=== PATIENT | male | born 1945 | race American Indian/Alaskan Native ===

== ENCOUNTER 2018-03-23 17:09 | Inpatient (IN) | payer MEDICARE ==
[2018-03-23] MEDS ORDERED: Piperacillin/Tazobact 3.375 gm 100 ML IVPB STA (17:56)
--- NOTE | 2018-03-23 18:05 | C.PDOC ---
History Of Present Illness 72 y/o male presents to the ER complaining of wound to right foot. Patient states that he was seen by his PMD, in his office yesterday. referred him to the ER for admission. Patient notes that he has draining in his right foot and a left BKA. Denies having fever, chills, and other complaint at this time. Time Seen by Provider: 03/23/18 17:23 Chief Complaint (Nursing): Lower Extremity Problem/Injury History Per: Patient History/Exam Limitations: no limitations Onset/Duration Of Symptoms: Days Current Symptoms Are (Timing): Still Present Severity: Moderate Past Medical History Reviewed: Historical Data, Nursing Documentation, Vital Signs Vital Signs: Last Vital Signs Temp 97.8 F 03/23/18 17:38 Pulse 76 03/23/18 17:38 Resp 18 03/23/18 17:38 BP 140/71 03/23/18 17:38 Pulse Ox 95 03/23/18 18:30 - Medical History PMH: CHF, HTN, Hypercholesterolemia Denies: Chronic Kidney Disease Other Surgeries: Hx of surgeries Family History: States: No Known Family Hx - Social History Hx Alcohol Use: No Hx Substance Use: No - Immunization History Hx Tetanus Toxoid Vaccination: No Hx Influenza Vaccination: No Hx Pneumococcal Vaccination: No Review Of Systems Except As Marked, All Systems Reviewed And Found Negative. Constitutional: Negative for: Fever, Chills Skin: Positive for: Other (open wound to right foot) Physical Exam - Physical Exam Appears: Non-toxic, No Acute Distress Skin: Normal Color, Warm, Dry Head: Atraumatic, Normacephalic Eye(s): bilateral: Normal Inspection Nose: Normal Oral Mucosa: Moist Neck: Supple Chest: Symmetrical Cardiovascular: Rhythm Regular Respiratory: Normal Breath Sounds, No Rales, No Rhonchi, No Wheezing Gastrointestinal/Abdominal: Normal Exam, Soft, No Tenderness, No Guarding, No Rebound Extremity: Normal ROM, Other (tenderness and drainage to right 3rd, 4th, and 5th digits , ulceration to right heel, left BKA) Neurological/Psych: Oriented x3, Normal Speech ED Course And Treatment O2 Sat by Pulse Oximetry: 95 (RA) Pulse Ox Interpretation: Normal - Other Rad X-Ray- Right Foot X-Ray: Viewed By Me, Read By Radiologist Interpretation: Date of service: 03/23/2018. PROCEDURE: Right Foot Radiographs. HISTORY: foot infection. COMPARISON: None. FINDINGS: BONES: Prior resection of the 1st digit. JOINTS: Multiple hammertoe deformities 2nd through 5th digits. SOFT TISSUES: Plantar soft tissue swelling distally. Soft tissue swelling in the vicinity of the Achilles tendon insertion. OTHER FINDINGS: None. IMPRESSION: Soft tissue swelling without acute articular or osseous abnormality. CXR X-Ray: Viewed By Me, Read By Radiologist Interpretation: Date of service: 03/23/2018. PROCEDURE: CHEST RADIOGRAPH, 1 VIEW. HISTORY: SOB. COMPARISON: Chest radiograph dated 11/29/2012. FINDINGS : LUNGS: Stable chronic prominence of the bilateral interstitial markings. Bibasilar atelectasis. PLEURA: Small bilateral pleural effusions. No appreciable pneumothorax. CARDIOVASCULAR: Atherosclerotic aortic calcifications. Cardiomediastinal silhouette stably probable. OSSEOUS STRUCTURES: Bilateral humeral hardware. Unchanged. VISUALIZED UPPER ABDOMEN: Normal. OTHER FINDINGS: Left subclavian access chest port, unchanged. Left axillary surgical clips. IMPRESSION: Small bilateral pleural effusions. Medical Decision Making Medical Decision Making: Assessment: Foot Cellulitis Plan: --Labs --EKG --CXR --Vancomycin IV Updates: Case discussed with . Patient will be admitted for foot cellultis. ,Dr. Zelaya, and Dr. Woods will be on consult. Podiatry resident notified, will come to evaluate patient. Disposition Discussed With Dr.: Edison Yadav Doctor Will See Patient In The: Hospital Counseled Patient/Family Regarding: Studies Performed, Diagnosis - Disposition Disposition: HOSPITALIZED Disposition Time: 18:05 Condition: FAIR Forms: [employer] (Marshallese) - Clinical Impression Clinical Impression: Cellulitis of foot - Scribe Statement The provider has reviewed the documentation as recorded by [facility] Provider Attestation: All [facility] were at my direction and personally dictated by me. I have reviewed the chart and agree that the record accurately reflects my personal performance of the history, physical exam, medical decision making, and the department course for this patient. I have also personally directed, reviewed, and agree with the discharge instructions and disposition.
--- NOTE | 2018-03-23 18:20 | RAD ---
Date of service: 03/23/2018 PROCEDURE: Right Foot Radiographs. HISTORY: foot infection COMPARISON: None. FINDINGS: BONES: Prior resection of the 1st digit. JOINTS: Multiple hammertoe deformities 2nd through 5th digits. SOFT TISSUES: Plantar soft tissue swelling distally. Soft tissue swelling in the vicinity of the Achilles tendon insertion. OTHER FINDINGS: None. IMPRESSION: Soft tissue swelling without acute articular or osseous abnormality.
--- NOTE | 2018-03-23 18:23 | RAD ---
Date of service: 03/23/2018 PROCEDURE: CHEST RADIOGRAPH, 1 VIEW HISTORY: SOB COMPARISON: Chest radiograph dated 11/29/2012. FINDINGS: LUNGS: Stable chronic prominence of the bilateral interstitial markings. Bibasilar atelectasis. PLEURA: Small bilateral pleural effusions. No appreciable pneumothorax. CARDIOVASCULAR: Atherosclerotic aortic calcifications. Cardiomediastinal silhouette stably probable. OSSEOUS STRUCTURES: Bilateral humeral hardware. Unchanged. VISUALIZED UPPER ABDOMEN: Normal. OTHER FINDINGS: Left subclavian access chest port, unchanged. Left axillary surgical clips. IMPRESSION: Small bilateral pleural effusions.
[2018-03-23 19:27] LABS: ALB/GLOB RATIO 1.1 (1.0-2.1); ALBUMIN 3.8 g/dL (3.5-5.0); ALT/SGPT 23 U/L (21-72); AST/SGOT 48 U/L (17-59); BLOOD UREA NITROGEN 18 mg/dL (9-20); CALCIUM 8.9 mg/dl (8.6-10.4); GFR AFRICAN-AMERICAN > 60; GFR NON-AFRICAN AMERICAN > 60
[2018-03-23] MEDS ORDERED: Vancomycin 1 gm/NS 200 ml 1 GM/200 ML BAG IVPB STA (20:01)
[2018-03-23 20:10] LABS: HEMOGLOBIN 12.5 g/dL (12.0-18.0); MEAN CORPUSCULAR HGB CONC 31.9 g/dL (33.0-37.0); NEUT # 6.3 K/uL (1.8-7.0); NRBC % 0.2 % (0.0-2.0)
[2018-03-23 20:15] LABS: PROTHROMBIN TIME 11.2 SECONDS (9.7-12.2)
[2018-03-23] MEDS: Piperacill/Tazo 2.25gm in Dex 2.25 GM/50 ML BAG IVPB SCH (20:29)
[2018-03-23 20:30] LABS: BASO # 0.1 K/uL (0.0-0.2); BASO % 0.6 % (0.0-2.0); EOS # 0.3 K/uL (0.0-0.7); EOS % 3.5 % (0.0-4.0); LYMPH # 1.9 K/uL (1.0-4.3); LYMPH % 19.8 % (20.0-40.0); MEAN CELL VOLUME 82.4 fL (80.0-94.0); MEAN CORPUSCULAR HEMOGLOBIN 26.3 pg (27.0-31.0); MEAN PLATELET VOLUME 7.4 fL (7.2-11.7); MONO # 1.1 K/uL (0.0-0.8); MONO % 11.2 % (0.0-10.0); NEUT % 64.9 % (50.0-75.0); RBC 4.73 Mil/uL (4.40-5.90); RED CELL DISTRIBUTION WIDTH 15.6 % (11.5-14.5); WHITE BLOOD COUNT 9.7 K/uL (4.8-10.8)
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
[2018-03-23] MEDS: HYDROmorphone 1 mg/ml ISec IVP PRN (23:44)
[2018-03-24] MEDS: Piperacill/Tazo 2.25gm in Dex 2.25 GM/50 ML BAG IVPB SCH ×4 (00:52→19:37)
[2018-03-24] MEDS: HYDROmorphone 1 mg/ml ISec IVP PRN ×6 (03:58→23:47)
--- NOTE | 2018-03-24 04:51 | HP ---
HISTORY OF PRESENT ILLNESS: I saw Mr. Cole on Thursday, yesterday on a house call, and I looked at his right foot. I tried to get him to come to the hospital right away. He refused to go at that time. He ended up coming this evening Thursday, the day after. His right foot is very swollen, had a heel ulcer. His three toes, three, four and five are bloody with ulcers. He has got first foot pitting edema of the right leg. The left leg has been giving with this for at least a month less now at the house with may be a +2 edema and the skin was intact. He also has very poor physical condition, and he cannot now stand without maximum assists with his or with a walker. Sometimes, he does use a wheelchair and just pivot. He has a history of left BKA from peripheral vascular disease. PAST MEDICAL HISTORY: CHF, hypertension, high cholesterol. No kidney issues. PAST SURGICAL HISTORY: He has had surgeries of his left leg BKA bilateral shoulder weakness. He cannot have any motion of the shoulders, almost frozen. FAMILY HISTORY: No known family history. SOCIAL HISTORY: No alcohol. No drugs. No smoking. ALLERGIES: HE HAS NO KNOWN DRUG ALLERGIES. MEDICATIONS: He cannot bring list of medications with him. He will bring them tomorrow. REVIEW OF SYSTEMS: No acute vision changes or hearing changes. No sore throat. No neck pain. No chest pain or palpitations. No shortness of breath or cough. No abdominal pain, nausea, vomiting, constipation or diarrhea. Right foot is in pain, pretty severe on an 04/23. He has got a skin ulcers of the heel in the right foot and toes 3, 4 and 5 are bloody wounded and opened. Also, there is much swelling to the right leg. Left leg is BKA. Skin is intact there. PHYSICAL EXAMINATION: VITAL SIGNS: Has 97.8 temperature, 76 pulse, 18 respiratory rate, 140/71 blood pressure, and 95% on O2 saturation on room air. GENERAL: He is in no acute distress. Little bit of pain in the right foot. SKIN: The skin in the right foot, there is a 3 x 3 cm round ulcer almost to the bone stage III at least with blood also with toes 3, 4, and 5. Also, there is very swollen of the right foot and leg up to the knee. HEENT: Head is atraumatic, normocephalic. Extraocular muscles are intact. Throat is moist. NECK: Supple. HEART: Regular rate. Normal S1 and S2. LUNGS: Decreased breath sounds bilaterally, but clear to auscultation. No wheezes, rhonchi or rales. ABDOMEN: Soft, nontender and positive bowel sounds. No guarding or rebound. No CVA tenderness. EXTREMITIES: He has a left BKA. There is a right heel ulcer. There are ulcers to 3, 4 and 5 digits of the right foot. NEUROLOGIC: Alert and oriented x3. Speech is normal. LABORATORY DATA: He had an x-ray of the right foot. He has soft tissue swelling without articular osseous abnormality. Chest x-ray: Small bilateral pleural effusions. Labs are not back yet. IMPRESSION: Severe ulcers of the right foot, edema and cellulitis, rule out osteomyelitis. PLAN: We will get Zosyn IV. Got a shot of vancomycin already. I will have a consult with Infectious Disease, Surgery, and Podiatry. he is on Lasix 40 mg IV, morphine for pain, IV Zosyn. We will check his labs tomorrow and some circulation studies, and I need an MRI of the right foot to rule out osteomyelitis. Edison Yadav DO MTDKarla
[2018-03-24 07:23] LABS: MEAN CELL VOLUME 82.4 fL (80.0-94.0); MEAN CORPUSCULAR HEMOGLOBIN 27.4 pg (27.0-31.0); MEAN CORPUSCULAR HGB CONC 33.2 g/dL (33.0-37.0); MEAN PLATELET VOLUME 7.3 fL (7.2-11.7); RBC 4.39 Mil/uL (4.40-5.90); RED CELL DISTRIBUTION WIDTH 15.9 % (11.5-14.5)
[2018-03-24 07:38] LABS: ALB/GLOB RATIO 1.1 (1.0-2.1); ALBUMIN 3.6 g/dL (3.5-5.0); ALT/SGPT 22 U/L (21-72); AST/SGOT 50 U/L (17-59); BLOOD UREA NITROGEN 17 mg/dL (9-20); CALCIUM 8.7 mg/dl (8.6-10.4); GFR AFRICAN-AMERICAN > 60; GFR NON-AFRICAN AMERICAN > 60
[2018-03-24] MEDS: Enoxaparin 40 mg Syringe SC SCH (09:14)
--- NOTE | 2018-03-24 12:14 | PN ---
DATE: 03/24/2018 SUBJECTIVE: I saw Severiano in bed. He did not sleep well last night and had lot of pain to the right leg. Morphine did not work. Dilaudid helped a little bit, but not much. Also he was not sleeping well. The diuresis with the Lasix made a big difference to the left leg, but less swollen, but there is still oozing from the heel and the toes. PHYSICAL EXAMINATION: VITAL SIGNS: He has a 97.4 temp, 109 pulse, 136/82 blood pressure, 20 respiratory rate, 95% O2 sat on room air. HEENT: Head is atraumatic and normocephalic. HEART: Regular rate. LUNGS: Decreased breath sounds, but clear. ABDOMEN: Soft. EXTREMITIES: The right leg is bandaged. The left leg has got a BKA. He has got a bad heel ulcer, large with oozing almost the bone and toes 3, 4, and 5 ulcers are bloody, and edema is down to like a 3+ and 4+ when he came in. LABORATORY DATA: Labs were 141 sodium, potassium 4.2, BUN 18, and creatinine 0.6. GFR is greater than 60, sugar is 94, calcium is 8.9, total bili is 0.5, AST is 48, ALT is 23, alk phos 79, total protein 7.4, and INR is 1. White count is 9.7, hemoglobin 12.5, hematocrit 39, and platelets 169. ASSESSMENT: Severe right heel ulcer, toes 3, 4 and 5 ulcers, and peripheral vascular disease. PLAN: There will be consults with Vascular and Infectious Disease. I am also calling Cardiology for clearance for possible surgery. I will increase his pain medications to Dilaudid two every 3 and fentanyl patchy 25 and Ambien at nighttime. We will check his labs tomorrow. Edison Yadav DO MTDD
--- NOTE | 2018-03-24 12:24 | CP.PCM.PN ---
Subjective - Date & Time of Evaluation Date of Evaluation: 03/24/18 Time of Evaluation: 12:20 - Subjective Subjective: Podiatry Progress note: Dr. Mosqueda 72 year old male was seen and evaluated at bedside for R foot and leg chronic ischemic wounds. Patient is AAOx3 and appears well. Denies of any acute overnight events. Denies of any pain today unless someone touches the wounds. Denies of any other pedal complains now. Denies F/N/V/C/SOB/CP. Objective - Vital Signs/Intake and Output Vital Signs (last 24 hours): Temp Pulse Resp BP Pulse Ox 98.7 F 91 H 20 140/72 96 03/24/18 08:00 03/24/18 08:00 03/24/18 08:00 03/24/18 09:24 03/24/18 08:00 - Medications Medications: Current Medications Enoxaparin Sodium (Lovenox) 40 mg SC DAILY [facility] Last Admin: 03/24/18 09:14 Dose: Not Given Fentanyl (Duragesic) 1 patch TD Q72H JESSY Last Admin: 03/24/18 07:38 Dose: 1 patch Furosemide (Lasix) 40 mg IVP DAILY [facility] Last Admin: 03/24/18 09:24 Dose: 40 mg Hydromorphone HCl (Dilaudid) 2 mg IVP Q3H PRN PRN Reason: Pain, moderate (4-7) Last Admin: 03/24/18 10:48 Dose: 2 mg Piperacillin Sod/Tazobactam Sod (Zosyn 2.25 Gm Iv Premix) 2.25 gm in 50 mls @ 100 mls/hr IVPB Q6H JESSY PRN Reason: Protocol Last Admin: 03/24/18 06:05 Dose: 100 mls/hr Pneumococcal Polyvalent Vaccine (Pneumovax 23 Vaccine) 0.5 ml IM .ONCE ONE Stop: 03/26/18 10:01 Zolpidem Tartrate (Ambien) 5 mg PO HS PRN PRN Reason: Insomnia - Labs Labs: 03/24/18 07:03 03/24/18 07:03 PT 11.2 SECONDS (9.7-12.2) 03/23/18 19:52 INR 1.0 03/23/18 19:52 APTT 23 SECONDS (21-34) 03/23/18 19:52 - Constitutional Appears: Well, Non-toxic, No Acute Distress - Extremities Exam Additional comments: Right lower extremity focused exam: Vascular: DP/PT pulses are non palpable, CFT >5 secs x 3, Temperature gradient cool to cool from proximal to distal, moderate non-pitting edema noted to the anterior leg Derm: Gangrenous changes noted distal to the knee, plaque noted on the dorsal aspect of the leg, two open lesions noted: 1) Superficial Ulcer noted to the proximal aspect of the heel measuring approximately 5 cm x 2 cm x .1 cm, no malodor, 100% granular base, no active drainage, no tunneling or tracking noted, no probe to bone 2) Ulcer noted on digits 3, 4 and 5 extending proximally on the dorsal aspect. No malodor noted, macerated fibrotic and granular base, minimal serous drainage , no tunneling or tracking, no probe to bone. Ortho: Pain on palpation to the wounds, foot and ankle ROM limited due to guarding. Neuro: Protective sensation intact via ipswich 12/16 - Neurological Exam Neurological Exam: Alert, Awake, Oriented x3 - Psychiatric Exam Psychiatric exam: Normal Affect, Normal Mood Assessment and Plan - Assessment and Plan (Free Text) Assessment: 72 year old male evaluated for gangrenous changes to the right foot and leg as well as ischemic ulcers on the 2nd,3rd, and 4th digits and heel. Plan: Patient seen ad evaluated Discussed patient in details with Dr. Mosqueda Chart, labs, and vitals reviewed; Afebrile Wbc 8.0 Wound cx R foot: pending foot X-ray: no osseous changes consistent with OM noted. Dressing applied using Telfa, DSD Vascular consult in place General surgery consult in place Podiatry will continue to follow patient while in-house
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
[2018-03-24] MEDS: Vitamins A & D Oint UD Foilpak TOP PRN (14:03)
[2018-03-24] MEDS ORDERED: Propofol 10 mg/ml Inj (20 ML) ONE (16:41)
[2018-03-24] MEDS ORDERED: Lidocaine 1% 20 MG/2 ML PF AMP ONE (16:51)
[2018-03-24] MEDS ORDERED: ceFAZolin IV 1 gm in Dextrose 0 GM/0 ML BAG IVPB ONE (16:51)
[2018-03-24] MEDS ORDERED: Iohexol 240 (50 ml) ONE (16:52)
[2018-03-24] MEDS ORDERED: HEPARIN-NS 5,000 UNITS/500 ML 5,000 UNIT/500 ML BAG IV ONE (16:52)
[2018-03-24] MEDS ORDERED: Midazolam 2 MG/2 ML VIAL ONE (16:54)
[2018-03-24] MEDS ORDERED: Lidocaine Hydrochloride 10 ML INJ ONE ×2 (17:10→17:12)
[2018-03-24] MEDS ORDERED: HYDROmorphone 0.5 mg/0.5 ml ISec IVP PRN (17:51)
[2018-03-24] MEDS ORDERED: Vitamins A & D Oint UD Foilpak TOP SCH (18:00)
[2018-03-25] MEDS: Piperacill/Tazo 2.25gm in Dex 2.25 GM/50 ML BAG IVPB SCH ×4 (01:58→19:57)
[2018-03-25] MEDS: HYDROmorphone 1 mg/ml ISec IVP PRN ×6 (03:14→22:24)
--- NOTE | 2018-03-25 04:53 | OP ---
PROCEDURE DATE: 03/24/2018 PREOPERATIVE DIAGNOSIS: Gangrene in the right foot. POSTOPERATIVE DIAGNOSIS: Gangrene in the right foot. PROCEDURE PERFORMED: 1. Removal of previous malfunctioning Port-A-Cath. 2. Insertion of new Port-A-Cath. 3. Right third, fourth, and fifth toe transmetatarsal amputation. SURGEON: Silvio Woods MD ANESTHESIA: General. BLOOD LOSS: 30 mL. POSTOPERATIVE CONDITION: Stable. INDICATIONS FOR SURGERY: This is a 72-year-old male well-known to me. He is 10 years status post left BKA for peripheral vascular disease, presents with severe right diabetic foot infection with pus draining from the base of his toes, and extensive gangrene. He also has an occluded Port-A-Cath and is taken to the operating room for change of his Port-A-Cath as well as a drainage of the abscess in his foot and a palliative amputation in preparation for an angiogram and possible below-knee amputation. DESCRIPTION OF PROCEDURE: The patient taken to the operating room. IV sedation was administered. The left chest wall was prepped and draped. Local anesthesia was infiltrated on the left chest wall. An incision was made near the previous Port-A-Cath. It was dissected free and removed via tissue flaps been raised. Next, an wire attempted to be passed to the previous catheter was occluded but not permit passage of the catheter. For this reason, the subclavian vein was cannulated with a " " and a guidewire was inserted into the vena cava. The previous catheter had been completely removed. The catheter was inserted over an introducer, withdrawn to the level of vena cava, placement was confirmed fluoroscopically. The wound was irrigated with saline. Tissue flaps were placed and a tissue flap closure was performed with multiple layers of Monocryl. The catheter was then cannulated. General anesthesia was administered, and the right foot was prepped and draped. A generous elliptical incision was made surrounding gangrenous areas of the foot and pus was drained and cultured. The transmetatarsal bones were transected using a bone cutter and the wound was left open. Bleeding was controlled using the Bovie. It was packed open with wet saline gauze and a pressure dressing. The patient tolerated the procedure well. Returned to recovery room in stable condition. Silvio Woods MD [facility] # [id number]
[2018-03-25 07:27] LABS: HEMOGLOBIN 12.3 g/dL (12.0-18.0); MEAN CELL VOLUME 82.4 fL (80.0-94.0); MEAN CORPUSCULAR HEMOGLOBIN 27.3 pg (27.0-31.0); MEAN CORPUSCULAR HGB CONC 33.2 g/dL (33.0-37.0); MEAN PLATELET VOLUME 7.4 fL (7.2-11.7); RBC 4.51 Mil/uL (4.40-5.90); RED CELL DISTRIBUTION WIDTH 15.3 % (11.5-14.5)
[2018-03-25 07:29] LABS: ALB/GLOB RATIO 1.1 (1.0-2.1); ALBUMIN 3.9 g/dL (3.5-5.0); ALT/SGPT 19 U/L (21-72); AST/SGOT 49 U/L (17-59); BLOOD UREA NITROGEN 14 mg/dL (9-20); CALCIUM 9.1 mg/dl (8.6-10.4); GFR AFRICAN-AMERICAN > 60; GFR NON-AFRICAN AMERICAN > 60
[2018-03-25] MEDS: Enoxaparin 40 mg Syringe SC SCH (09:17)
--- NOTE | 2018-03-25 10:02 | RAD ---
PROCEDURE: HISTORY: As above COMPARISON: None TECHNIQUE: Total fluoroscopic time utilized during the procedure: 42.1 seconds ; 6.07 mGy FINDINGS: Submitted images from the current procedure: 3 Please refer to the physician's notes performing the procedure. IMPRESSION: Less than 1 hour fluoroscopic time utilized during performance of the procedure
--- NOTE | 2018-03-25 12:17 | CARD ---
APPROVED REPORT Date of service: 03/23/2018 EKG Measurement Heart [id number] <Conclusion> Sinus rhythm with premature supraventricular complexes Minimal voltage criteria for LVH, may be normal variant Borderline ECG
--- NOTE | 2018-03-25 13:46 | PN ---
DATE: 03/25/2018 SUBJECTIVE: I saw Severiano in bed. He slept fairly well. He is getting better with pain medication. He is feeling less pain. He is on Ambien to help him sleep. He is on Dilaudid and Duragesic patch, which he said is helping. He is status post toes 3, 4, 5 on the right amputated due to gangrene. He is on Lasix 40, which I think has done a good job. He is getting rid of the swelling of the leg and Lovenox. He is also on Zosyn for the infections. He has got a right heel ulcer and now he is status post toes 3, 4, 5 amputated on the right. PHYSICAL EXAMINATION: VITAL SIGNS: He has a 98.2 temp, 109 pulse, 139/74 blood pressure, 20 respiratory rate, 97% O2 sat on nasal cannula. HEENT: Head is atraumatic and normocephalic. HEART: Regular rate. LUNGS: Decreased breath sounds, but clear. ABDOMEN: Soft. EXTREMITIES: Left with BKA. Right foot is bandaged. The swelling is almost down to a +1 from a +4. He has got a right heel ulcer and status post three toes removed, 3, 4, and 5. LABORATORY DATA: He has 142 sodium, potassium 3.9, BUN 14, and creatinine 0.8. GFR is greater than 60. Sugar is 129, calcium is 9.1, total bili is 0.9, AST is 49, ALT is 19, alk phos is 66, total protein 7.3, and albumin is 3.9. White count is 8, hemoglobin 12.3, hematocrit 37.2, and platelets 222. ASSESSMENT AND PLAN: He is being seen by surgeon, Infectious Disease, career placement specialist, await Cardiology evaluation. He is eating fairly well. Continue with aggressive treatment and care. He might need to be transferred possibly to antibiotics progresses. I will check his labs tomorrow. Discussed at length with the patient and the . Hopefully, we can save the foot. Edison Yadav DO [facility]
[2018-03-25] MEDS ORDERED: Iodixanol 320 mg/ml 150 ml Bottle IV ONE (16:34)
--- NOTE | 2018-03-25 18:52 | CP.PCM.PN ---
Subjective - Date & Time of Evaluation Date of Evaluation: 03/25/18 Time of Evaluation: 08:00 - Subjective Subjective: afeb on iv rx wound is bandaged denies fever + Pain Objective - Vital Signs/Intake and Output Vital Signs (last 24 hours): Temp Pulse Resp BP Pulse Ox 99.1 F 108 H 20 117/70 98 03/25/18 16:00 03/25/18 16:00 03/25/18 16:00 03/25/18 16:00 03/25/18 16:00 Intake and Output: 03/25/18 03/25/18 06:59 18:59 Intake Total 850 250 Balance 850 250 - Medications Medications: Current Medications Enoxaparin Sodium (Lovenox) 40 mg SC DAILY [facility] Last Admin: 03/25/18 09:17 Dose: 40 mg Fentanyl (Duragesic) 1 patch TD Q72H [facility] Last Admin: 03/24/18 07:38 Dose: 1 patch Furosemide (Lasix) 40 mg IVP DAILY [facility] Last Admin: 03/25/18 09:17 Dose: 40 mg Hydromorphone HCl (Dilaudid) 2 mg IVP Q3H PRN PRN Reason: Pain, moderate (4-7) Last Admin: 03/25/18 18:29 Dose: 2 mg Piperacillin Sod/Tazobactam Sod (Zosyn 2.25 Gm Iv Premix) 2.25 gm in 50 mls @ 100 mls/hr IVPB Q6H [facility] PRN Reason: Protocol Last Admin: 03/25/18 14:09 Dose: 100 mls/hr Pneumococcal Polyvalent Vaccine (Pneumovax 23 Vaccine) 0.5 ml IM .ONCE ONE Stop: 03/26/18 10:01 Vitamin A (Vitamin A & D Oint Ud Foilpak) 1 ea TOP BID PRN PRN Reason: dry lips Last Admin: 03/24/18 14:03 Dose: 1 ea Zolpidem Tartrate (Ambien) 5 mg PO HS PRN PRN Reason: Insomnia - Labs Labs: 03/25/18 07:06 03/25/18 07:06 PT 11.2 SECONDS (9.7-12.2) 03/23/18 19:52 INR 1.0 03/23/18 19:52 APTT 23 SECONDS (21-34) 03/23/18 19:52 - Constitutional Appears: Non-toxic, Chronically Ill - Head Exam Head Exam: NORMOCEPHALIC - Eye Exam Eye Exam: absent: Scleral icterus - ENT Exam ENT Exam: Mucous Membranes Dry - Neck Exam Neck Exam: absent: Lymphadenopathy - Respiratory Exam Respiratory Exam: Decreased Breath Sounds - Cardiovascular Exam Cardiovascular Exam: REGULAR RHYTHM - GI/Abdominal Exam GI & Abdominal Exam: Distended, Soft - Rectal Exam Rectal Exam: Deferred - Exam Exam: NORMAL INSPECTION - Extremities Exam Extremities Exam: Pedal Edema Additional comments: left bka - Back Exam Back Exam: absent: CVA tenderness (L), CVA tenderness (R) - Neurological Exam Neurological Exam: Alert, Awake, Oriented x3 - Psychiatric Exam Psychiatric exam: Depressed Assessment and Plan (1) History of left below knee amputation Status: Acute (2) CVA, old, hemiparesis Status: Acute (3) Cellulitis of foot Status: Acute (4) Dehydration Status: Acute (5) Gangrene of right foot Status: Acute - Assessment and Plan (Free Text) Assessment: cont iv rx
[2018-03-25] MEDS: Micafungin 100 MG in Sodium Chloride 0.9% 100 ML IV SCH (20:50)
--- NOTE | 2018-03-26 00:58 | CP.PCM.PN ---
Subjective - Date & Time of Evaluation Date of Evaluation: 03/25/18 Time of Evaluation: 09:05 - Subjective Subjective: Pt c/o pain in the right gangrenous foot No chest pain No sob Afebrile. Objective - Vital Signs/Intake and Output Vital Signs (last 24 hours): Temp Pulse Resp BP Pulse Ox 99.1 F 108 H 20 117/70 98 03/25/18 16:00 03/25/18 16:00 03/25/18 16:00 03/25/18 16:00 03/25/18 16:00 Intake and Output: 03/25/18 03/26/18 18:59 06:59 Intake Total 250 450 Balance 250 450 - Medications Medications: Current Medications Enoxaparin Sodium (Lovenox) 40 mg SC DAILY [facility] Last Admin: 03/25/18 09:17 Dose: 40 mg Fentanyl (Duragesic) 1 patch TD Q72H [facility] Last Admin: 03/24/18 07:38 Dose: 1 patch Furosemide (Lasix) 40 mg IVP DAILY [facility] Last Admin: 03/25/18 09:17 Dose: 40 mg Hydromorphone HCl (Dilaudid) 2 mg IVP Q3H PRN PRN Reason: Pain, moderate (4-7) Last Admin: 03/25/18 22:24 Dose: 2 mg Piperacillin Sod/Tazobactam Sod (Zosyn 2.25 Gm Iv Premix) 2.25 gm in 50 mls @ 100 mls/hr IVPB Q6H [facility] PRN Reason: Protocol Last Admin: 03/25/18 19:57 Dose: 100 mls/hr Micafungin Sodium 100 mg/ (Sodium Chloride) 100 mls @ 100 mls/hr IV Q24H [facility] PRN Reason: Protocol Last Admin: 03/25/18 20:50 Dose: 100 mls/hr Pneumococcal Polyvalent Vaccine (Pneumovax 23 Vaccine) 0.5 ml IM .ONCE ONE Stop: 03/26/18 10:01 Vitamin A (Vitamin A & D Oint Ud Foilpak) 1 ea TOP BID PRN PRN Reason: dry lips Last Admin: 03/24/18 14:03 Dose: 1 ea Zolpidem Tartrate (Ambien) 5 mg PO HS PRN PRN Reason: Insomnia - Labs Labs: 03/25/18 07:06 03/25/18 07:06 PT 11.2 SECONDS (9.7-12.2) 03/23/18 19:52 INR 1.0 03/23/18 19:52 APTT 23 SECONDS (21-34) 03/23/18 19:52 - Constitutional Appears: Non-toxic - Eye Exam Eye Exam: absent: Scleral icterus - Neck Exam Neck Exam: Full ROM - Respiratory Exam Respiratory Exam: Decreased Breath Sounds - Cardiovascular Exam Cardiovascular Exam: REGULAR RHYTHM - GI/Abdominal Exam GI & Abdominal Exam: Soft - Extremities Exam Extremities Exam: Tenderness. absent: Pedal Edema Additional comments: s/p left BKA; gangrenous, painful right foot Assessment and Plan - Assessment and Plan (Free Text) Assessment: Gangrenous rt foot PVD T2dm Plan: Case discussed with patient regarding Lexiscan stress test Cont Abtx
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
[2018-03-26] MEDS: Piperacill/Tazo 2.25gm in Dex 2.25 GM/50 ML BAG IVPB SCH ×4 (01:54→19:56)
[2018-03-26] MEDS: HYDROmorphone 1 mg/ml ISec IVP PRN ×6 (01:58→22:58)
[2018-03-26 07:27] LABS: HEMOGLOBIN 12.4 g/dL (12.0-18.0); MEAN CELL VOLUME 82.6 fL (80.0-94.0); MEAN CORPUSCULAR HGB CONC 32.7 g/dL (33.0-37.0); MEAN PLATELET VOLUME 7.5 fL (7.2-11.7); RBC 4.59 Mil/uL (4.40-5.90); RED CELL DISTRIBUTION WIDTH 14.9 % (11.5-14.5); WHITE BLOOD COUNT 9.8 K/uL (4.8-10.8)
[2018-03-26 07:43] LABS: ALB/GLOB RATIO 1.1 (1.0-2.1); ALT/SGPT 27 U/L (21-72); AST/SGOT 69 U/L (17-59); BLOOD UREA NITROGEN 16 mg/dL (9-20); CALCIUM 9.1 mg/dl (8.6-10.4); GFR AFRICAN-AMERICAN > 60; GFR NON-AFRICAN AMERICAN > 60
--- NOTE | 2018-03-26 08:52 | PN ---
DATE: 03/26/2018 SUBJECTIVE: The patient is to undergo for an amputation of the right leg below-knee amputation and the nurse has told me that I could not find that in the notes. He is comfortable in bed. He is eating okay. He slept well. He has some pain in the right leg and had no Duragesic patch. He is on Ambien, Dilaudid, Duragesic patch, Lasix, Lovenox, micafungin, vitamin A, D, and Zosyn. PHYSICAL EXAMINATION: VITAL SIGNS: He has 98.7 temp, 105 pulse, 140/77 blood pressure, 20 respiratory rate, 95% O2 sat on 2 liters nasal cannula. HEENT: Head is atraumatic and normocephalic. HEART: Regular rate. LUNGS: Decreased breath sounds, but clear. ABDOMEN: Soft. EXTREMITIES: Right foot is bandaged. LABORATORY DATA: He has 142 sodium, potassium 3.9, BUN 14, and creatinine 0.8. GFR is greater than 50. Sugar is 129, calcium is 9.1, total bili is 0.9, AST is 49, ALT is 19, alk phos is 66, total protein 7.3, and albumin is 3.9. White count is 8, hemoglobin 12.3, hematocrit 37.2, and platelets are 222. ASSESSMENT AND PLAN: He is being seen by Cardiology, Infectious Disease, and Vascular Surgery. Continue with aggressive treatment and care. Below-knee amputation of the right leg. Edison Yadav DO
[2018-03-26] MEDS: Enoxaparin 40 mg Syringe SC SCH (09:00)
[2018-03-26] MEDS ORDERED: Pneumococcal 23-Valent Vaccine IM ONE (10:00)
--- NOTE | 2018-03-26 11:41 | CT ---
Date of service: 03/25/2018 PROCEDURE: CT Angiography Abdomen, Pelvis and Lower Extremity with Contrast HISTORY: Gangrene, cellulitis, S/p Left BKA COMPARISON: None. TECHNIQUE: Technique: CT angiography of the abdomen, pelvis and bilateral lower extremities performed in the arterial phase of enhancement. Coronal and sagittal reformats, and well as rotating MIP images of the vessels generated at the workstation. Intravenous contrast dose: 150 cubic centimeters Visipaque 320 Radiation dose: Total exam DLP = 3309.01 MGy-cm. This CT exam was performed using one or more of the following dose reduction techniques: Automated exposure control, adjustment of the mA and/or kV according to patient size, and/or use of iterative reconstruction technique. FINDINGS: CT ANGIOGRAPHY: ABDOMINAL AORTA:: The abdominal is unremarkable. MAJOR AORTIC BRANCHES: Celiac [place]: Unremarkable. Superior mesenteric artery: Unremarkable. Inferior mesenteric artery: Unremarkable. Renal arteries: Unremarkable. PELVIC ARTERIES: Right Common Iliac: Unremarkable. Right External Iliac: Unremarkable. Right Internal Iliac: Unremarkable. Left Common Iliac: Unremarkable. Left External Iliac: Unremarkable. Left Internal Iliac: Unremarkable. RIGHT LOWER EXTREMITY ARTERIES: Right Common Femoral: Unremarkable. Right Superficial Femoral: Moderate plaque throughout the SFA. There is occlusion of the mid SFA. A bypass graft from the SFA to the tibioperoneal artery is occluded. Right Profunda Femoris: Unremarkable. Right Popliteal:Occluded. Right Anterior Tibial: Fills via collateral in a proximal segment. Mid and distal segments appear occluded. Right Tibioperoneal Trunk: No flow within the tibioperoneal artery. Right Posterior Tibial: Some flow was seen within the mid and distal posterior tibial artery. There are multiple areas of severe stenosis throughout the posterior tibial artery. Right Peroneal: Psych believed to be patent. LEFT LOWER EXTREMITY ARTERIES: Left Common Femoral: Unremarkable. Left Superficial Femoral: Eluded mid SFA. Left Profunda Femoris: Unremarkable. Left below-knee amputation. NON-ANGIOGRAPHIC ASPECT OF THE EXAM: LOWER THORAX: Bibasilar atelectasis. LIVER: Unremarkable. No gross lesion or ductal dilatation. GALLBLADDER AND BILE DUCTS: Unremarkable. PANCREAS: Unremarkable. No gross lesion or ductal dilatation. SPLEEN: Unremarkable. ADRENALS: Unremarkable. No mass. KIDNEYS AND URETERS: Unremarkable. No hydronephrosis. No solid mass. STOMACH AND BOWEL: Limited evaluation of PO contrast. Severely dilated rectum measuring 9 centimeters. APPENDIX: Normal appendix. PERITONEUM: Unremarkable. No free fluid. No free air. LYMPH NODES: Unremarkable. No enlarged lymph nodes. BLADDER: Unremarkable. REPRODUCTIVE: Unremarkable. BONES: No acute fracture. OTHER FINDINGS: None. IMPRESSION: CT ANGIOGRAM ABDOMEN/PELVIS: 1. Essentially unremarkable CT angiogram of the abdomen and pelvis. RIGHT LOWER EXTREMITY CT ANGIOGRAM: 1. There is occlusion of the mid SFA with no reconstitution. Popliteal artery is occluded. Previously placed bypass graft is occluded extending from the SFA to tibioperoneal artery. 2. The peroneal artery is believed to be patent and fills via collateral. Anterior tibial artery is patent in the proximal segment but then occludes. The posterior tibial artery has some flow within the mid and distal segments. Multiple areas of severe stenosis throughout the posterior tibial artery. 3. The common femoral artery profunda femoral artery are unremarkable. LOWER EXTREMITY CT ANGIOGRAM: 1. Common femoral and profunda femoral artery are unremarkable. Left below-knee amputation.
[2018-03-26] MEDS ORDERED: Propofol 10 mg/ml Inj (20 ML) ONE (15:12)
[2018-03-26] MEDS ORDERED: Midazolam 2 MG/2 ML VIAL ONE (16:01)
--- NOTE | 2018-03-26 16:36 | CP.PCM.PN ---
Subjective - Date & Time of Evaluation Date of Evaluation: 03/26/18 Time of Evaluation: 09:00 - Subjective Subjective: events noted for OR growing pseudomonas in wound and william in blood iv rx renewed Objective - Vital Signs/Intake and Output Vital Signs (last 24 hours): Temp Pulse Resp BP Pulse Ox 98.8 F 10 L 20 86/68 L 96 03/26/18 14:35 03/26/18 14:35 03/26/18 14:35 03/26/18 14:35 03/26/18 14:35 Intake and Output: 03/26/18 03/26/18 06:59 18:59 Intake Total 450 Balance 450 - Medications Medications: Current Medications Enoxaparin Sodium (Lovenox) 40 mg SC DAILY [facility] Last Admin: 03/26/18 09:00 Dose: Not Given Fentanyl (Duragesic) 1 patch TD Q72H [facility] Last Admin: 03/24/18 07:38 Dose: 1 patch Furosemide (Lasix) 40 mg IVP DAILY [facility] Last Admin: 03/26/18 09:09 Dose: 40 mg Hydromorphone HCl (Dilaudid) 2 mg IVP Q3H PRN PRN Reason: Pain, moderate (4-7) Last Admin: 03/26/18 13:05 Dose: 2 mg Piperacillin Sod/Tazobactam Sod (Zosyn 2.25 Gm Iv Premix) 2.25 gm in 50 mls @ 100 mls/hr IVPB Q6H JESSY PRN Reason: Protocol Last Admin: 03/26/18 12:47 Dose: 100 mls/hr Micafungin Sodium 100 mg/ (Sodium Chloride) 100 mls @ 100 mls/hr IV Q24H JESSY PRN Reason: Protocol Last Admin: 03/25/18 20:50 Dose: 100 mls/hr Vitamin A (Vitamin A & D Oint Ud Foilpak) 1 ea TOP BID PRN PRN Reason: dry lips Last Admin: 03/24/18 14:03 Dose: 1 ea Zolpidem Tartrate (Ambien) 5 mg PO HS PRN PRN Reason: Insomnia - Labs Labs: 03/26/18 07:18 03/26/18 07:18 PT 11.2 SECONDS (9.7-12.2) 03/23/18 19:52 INR 1.0 03/23/18 19:52 APTT 23 SECONDS (21-34) 03/23/18 19:52 - Constitutional Appears: Non-toxic - Head Exam Head Exam: NORMOCEPHALIC - Eye Exam Eye Exam: PERRL - ENT Exam ENT Exam: Mucous Membranes Dry - Neck Exam Neck Exam: absent: Lymphadenopathy - Respiratory Exam Respiratory Exam: Decreased Breath Sounds - Cardiovascular Exam Cardiovascular Exam: REGULAR RHYTHM - GI/Abdominal Exam GI & Abdominal Exam: Distended - Rectal Exam Rectal Exam: Deferred - Exam Exam: NORMAL INSPECTION - Extremities Exam Extremities Exam: Pedal Edema Additional comments: left bka - Back Exam Back Exam: absent: CVA tenderness (L), CVA tenderness (R) Assessment and Plan (1) History of left below knee amputation Status: Acute (2) CVA, old, hemiparesis Status: Acute (3) Cellulitis of foot Status: Acute (4) Dehydration Status: Acute (5) Gangrene of right foot Status: Acute - Assessment and Plan (Free Text) Assessment: cont rx sepsis
[2018-03-26] MEDS ORDERED: Rocuronium 10 mg/ml (5 ml) ONE (16:37)
[2018-03-26] MEDS ORDERED: Succinylcholine Chloride 20 mg/ml Syr (5 ml) IV ONE (16:51)
[2018-03-26] MEDS: HYDROmorphone 0.5 mg/0.5 ml ISec IVP PRN ×3 (18:08→18:50)
[2018-03-26] MEDS ORDERED: HYDROmorphone 0.5 mg/0.5 ml ISec ONE ×2 (18:10→18:50)
[2018-03-26] MEDS ORDERED: HYDROmorphone 0.5 mg/0.5 ml ISec IVP PRN (18:54)
[2018-03-26] MEDS ORDERED: Lactated Ringer's 1,000 ML IV ONE (19:10)
[2018-03-26 20:31] VITALS: RESP 20
[2018-03-26] MEDS: Micafungin 100 MG in Sodium Chloride 0.9% 100 ML IV SCH (21:00)
[2018-03-27] MEDS: Piperacill/Tazo 2.25gm in Dex 2.25 GM/50 ML BAG IVPB SCH ×4 (00:04→19:05)
[2018-03-27] MEDS: HYDROmorphone 1 mg/ml ISec IVP PRN ×6 (03:59→22:26)
--- NOTE | 2018-03-27 04:37 | OP ---
PROCEDURE DATE: 03/26/2018 PREOPERATIVE DIAGNOSIS: Gangrene of the right foot and leg. POSTOPERATIVE DIAGNOSIS: Gangrene of the right foot and leg. PROCEDURE PERFORMED: Right below-knee amputation. SURGEON: Silvio Woods MD. ANESTHESIA: General. BLOOD LOSS: 50 mL. POSTOPERATIVE CONDITION: Stable. INDICATIONS FOR SURGERY: This is a 72-year-old male patient with multiple medical problems including history of severe peripheral vascular disease. He is status post left below-knee amputation. He presented to the hospital this week with extensive gangrene and infection. He was taken to the OR and underwent a debridement and open amputation of several toes of his foot in order to relieve the infection. He also underwent a change of Port-A-Cath. Postoperatively, this infection has gotten better, and a recent CT angiogram revealed basically occlusion of the superficial femoral artery in the right leg with no named vessel runoff for possible bypass. Because of the extensive nature of his vascular disease, and also the amount of gangrene in his legs, that an amputation was warranted. Treatment options were discussed to the patient prior, and he gave his informed consent. DESCRIPTION OF PROCEDURE: The patient was taken to the operation room. General anesthesia was administered. The right lower extremity was prepped and draped and a tourniquet was placed at this time. It was inflated to 300 mmHg and a standard right below-knee amputation incision was made creating a generous posterior flap. The fibula was first mobilized and dissected free proximally and transected using a bone cutter. The tibia was then using a periosteal elevator it was tripped off muscle and periosteum proximally and divided using a power saw. The anterior edge of the tibia was also beveled using the power saw. The amputation flap was then divided using an amputation knife, and the wound was irrigated with copious amounts of saline solution. Flap closure was performed using multiple layers of Monocryl and skin clips. The amputation stump was dressed with an amputation pressure dressing. The patient tolerated the procedure well. Returned to recovery room in stable condition. Silvio Woods MD
[2018-03-27 08:11] LABS: MEAN CORPUSCULAR HEMOGLOBIN 26.9 pg (27.0-31.0); MEAN CORPUSCULAR HGB CONC 32.4 g/dL (33.0-37.0); MEAN PLATELET VOLUME 7.7 fL (7.2-11.7); RBC 4.82 Mil/uL (4.40-5.90); RED CELL DISTRIBUTION WIDTH 15.2 % (11.5-14.5)
[2018-03-27 08:22] LABS: WHITE BLOOD COUNT 15.5 K/uL (4.8-10.8)
[2018-03-27 08:25] LABS: ALB/GLOB RATIO 1.2 (1.0-2.1); ALT/SGPT 25 U/L (21-72); AST/SGOT 90 U/L (17-59); BLOOD UREA NITROGEN 22 mg/dL (9-20); CALCIUM 8.9 mg/dl (8.6-10.4); GFR AFRICAN-AMERICAN > 60; GFR NON-AFRICAN AMERICAN > 60
[2018-03-27] MEDS: Enoxaparin 40 mg Syringe SC SCH (09:32)
--- NOTE | 2018-03-27 11:43 | PN ---
DATE: 03/27/2018 SUBJECTIVE: I saw Severiano in the hospital bed. He is status post right BKA yesterday. He is on IV antibiotics and pain medication. He is trying to eat. He is in a little bit of pain. He is being medicated. PHYSICAL EXAMINATION: VITAL SIGNS: He has 98.9 temp, it was 99.5 the night before that was the maximum it was, but was coming down, a Tylenol ordered now; pulse 202 and 110; 96/58 blood pressure; 20 respiratory rate; 95% O2 sat on 2 liters. HEENT: Head is atraumatic and normocephalic. Throat is moist. NECK: Supple. HEART: Regular rate. LUNGS: Decreased breath sounds, but clear. ABDOMEN: Soft and nontender. Positive bowel sounds. Right stump is all bandaged. He is currently on Ambien, Dilaudid, Duragesic, Lasix, Lovenox, micafungin, Tylenol, vitamin A, and Zosyn. LABORATORY DATA: Lab is pending this morning. Yesterday, his white count was 9.8. He has pseudomonas aeruginosa and new species grown out in the wound and the blood. ASSESSMENT AND PLAN: He is being seen by Infectious Disease, Cardiology, and Vascular Surgeon, and batch room technician. I ordered Tylenol. Case management to help us get him ready to go to 1:16) ordered physical therapy for the recommendations. We will check his labs tomorrow, encouragement to eat and to do well on physical therapy to help him get his body movement. Continue with aggressive treatment and care, status post right below knee amputation. Edison Yadav DO MTDD
[2018-03-27] MEDS: Micafungin 100 MG in Sodium Chloride 0.9% 100 ML IV SCH (19:40)
[2018-03-28] MEDS: Piperacill/Tazo 2.25gm in Dex 2.25 GM/50 ML BAG IVPB SCH ×4 (00:04→18:02)
[2018-03-28] MEDS: HYDROmorphone 1 mg/ml ISec IVP PRN ×5 (04:29→22:50)
[2018-03-28 07:51] LABS: HEMOGLOBIN 11.4 g/dL (12.0-18.0); MEAN CORPUSCULAR HEMOGLOBIN 27.1 pg (27.0-31.0); MEAN CORPUSCULAR HGB CONC 32.6 g/dL (33.0-37.0); MEAN PLATELET VOLUME 7.6 fL (7.2-11.7); RBC 4.19 Mil/uL (4.40-5.90); RED CELL DISTRIBUTION WIDTH 14.7 % (11.5-14.5); WHITE BLOOD COUNT 12.6 K/uL (4.8-10.8)
[2018-03-28 08:11] LABS: ALB/GLOB RATIO 1.1 (1.0-2.1); ALBUMIN 3.6 g/dL (3.5-5.0); ALT/SGPT 29 U/L (21-72); AST/SGOT 106 U/L (17-59); BLOOD UREA NITROGEN 16 mg/dL (9-20); CALCIUM 8.7 mg/dl (8.6-10.4); GFR AFRICAN-AMERICAN > 60; GFR NON-AFRICAN AMERICAN > 60
[2018-03-28] MEDS: Enoxaparin 40 mg Syringe SC SCH (09:03)
[2018-03-28] MEDS ORDERED: Magnesium Hydroxide Susp 30 ml UD PO PRN (10:17)
--- NOTE | 2018-03-28 14:28 | CP.PCM.PN ---
Subjective - Date & Time of Evaluation Date of Evaluation: 03/28/18 Time of Evaluation: 09:00 - Subjective Subjective: s/p rt BKA No complication no sob +fungemia Objective - Vital Signs/Intake and Output Vital Signs (last 24 hours): Temp Pulse Resp BP Pulse Ox 99.6 F 110 H 20 120/70 99 03/28/18 00:00 03/28/18 00:00 03/28/18 00:00 03/28/18 09:03 03/28/18 00:00 Intake and Output: 03/28/18 03/28/18 06:59 18:59 Intake Total 550 50 Output Total 250 Balance 300 50 - Medications Medications: Current Medications Acetaminophen (Tylenol 325mg Tab) 650 mg PO Q4 PRN PRN Reason: Fever >99.4 F Last Admin: 03/27/18 08:18 Dose: 650 mg Enoxaparin Sodium (Lovenox) 40 mg SC DAILY [facility] Last Admin: 03/28/18 09:03 Dose: 40 mg Fentanyl (Duragesic) 1 patch TD Q72H [facility] Last Admin: 03/27/18 06:06 Dose: 1 patch Furosemide (Lasix) 40 mg IVP DAILY [facility] Last Admin: 03/28/18 09:03 Dose: 40 mg Hydromorphone HCl (Dilaudid) 2 mg IVP Q3H PRN PRN Reason: Pain, moderate (4-7) Last Admin: 03/28/18 09:20 Dose: 2 mg Piperacillin Sod/Tazobactam Sod (Zosyn 2.25 Gm Iv Premix) 2.25 gm in 50 mls @ 100 mls/hr IVPB Q6H JESSY PRN Reason: Protocol Last Admin: 03/28/18 13:06 Dose: 100 mls/hr Micafungin Sodium 100 mg/ (Sodium Chloride) 100 mls @ 100 mls/hr IV Q24H JESSY PRN Reason: Protocol Last Admin: 03/27/18 19:40 Dose: 100 mls/hr Magnesium Hydroxide (Milk Of Magnesia) 30 ml PO TID PRN PRN Reason: Constipation Vitamin A (Vitamin A & D Oint Ud Foilpak) 1 ea TOP BID PRN PRN Reason: dry lips Last Admin: 03/24/18 14:03 Dose: 1 ea Zolpidem Tartrate (Ambien) 5 mg PO HS PRN PRN Reason: Insomnia Last Admin: 03/27/18 22:12 Dose: 5 mg - Labs Labs: 03/28/18 07:40 03/28/18 07:40 PT 11.2 SECONDS (9.7-12.2) 03/23/18 19:52 INR 1.0 03/23/18 19:52 APTT 23 SECONDS (21-34) 03/23/18 19:52 - Constitutional Appears: Non-toxic - Head Exam Head Exam: NORMAL INSPECTION - Eye Exam Eye Exam: absent: Scleral icterus - ENT Exam ENT Exam: Mucous Membranes Moist - Neck Exam Neck Exam: Full ROM - Respiratory Exam Respiratory Exam: absent: Decreased Breath Sounds - Cardiovascular Exam Cardiovascular Exam: REGULAR RHYTHM - GI/Abdominal Exam GI & Abdominal Exam: Soft - Extremities Exam Additional comments: s/p bilateral BKA Assessment and Plan - Assessment and Plan (Free Text) Assessment: s/p rt BKA Fungemia HTN PVD Plan: Cont present meds/Abtx NEIDA Case discussed with Dr Yadav
--- NOTE | 2018-03-28 15:13 | PN ---
DATE: 03/28/2018 SUBJECTIVE: I saw Mr. Cole comfortably in bed this morning. His IV is running. He is trying to eat well. He has been constipated. I ordered some Milk of Magnesia. He has an infection. He is more alert today than the other day, but he is getting pain meds from time to time. He understands to he is going to go [facility]. PHYSICAL EXAMINATION: VITAL SIGNS: He has 99.6 temp, 110 0:36 pulse, 120/70 blood pressure, 20 respiratory rate, 99% O2 sat on 2 liters nasal cannula. HEENT: Head is atraumatic and normocephalic. HEART: Regular rate. LUNGS: Decreased breath sounds, but clear. ABDOMEN: Soft. EXTREMITIES: Bilateral BKA. His right leg, which is done and is wrapped up. He is on Ambien, Dilaudid as needed, Duragesic patch, Lasix, Lovenox, micafungin, Milk of Magnesia, now Tylenol, vitamin A, and Zosyn IV. LABORATORY DATA: He has 140 sodium, potassium 3.7, BUN 16, and creatinine 0.7. GFR is greater than 60. Sugar is 152, calcium is 8.7, total bili is 0.8, AST is 106, ALT is 29, alk phos is 86, total protein 7, and albumin is 2.6. He has 12.6 white count that was as high as of 50.5, it is coming down a little bit; 11.4 hemoglobin, 34.8 hematocrit, and platelets 269. ASSESSMENT AND PLAN: He is being seen by Surgery, Infectious Disease, and Cardiology. He is hopefully going to get to [facility], which he says scheduled for subacute rehab before he goes to home. We will check his labs, IV antibiotics as per Infectious Disease. Case management to help us schedule him to [facility] for subacute rehab before he goes home in the next 24 to 48 hours Thursday or Thursday depending on Infectious disease and the antibiotics. Check his labs tomorrow. Milk of Magnesia for constipation. Encouraged the patient. He had a very severe right foot infection, gangrene and had a [id number] amputation. Edison Yadav DO [facility] # [id number] MTDKarla
--- NOTE | 2018-03-28 15:43 | CP.PCM.PN ---
Subjective - Date & Time of Evaluation Date of Evaluation: 03/28/18 Time of Evaluation: 10:00 - Subjective Subjective: improving s/p right BKA and Port removal replacement cont iv antibiotics for min 7 days Objective - Vital Signs/Intake and Output Vital Signs (last 24 hours): Temp Pulse Resp BP Pulse Ox 99.6 F 110 H 20 120/70 99 03/28/18 00:00 03/28/18 00:00 03/28/18 00:00 03/28/18 09:03 03/28/18 00:00 Intake and Output: 03/28/18 03/28/18 06:59 18:59 Intake Total 550 50 Output Total 250 Balance 300 50 - Medications Medications: Current Medications Acetaminophen (Tylenol 325mg Tab) 650 mg PO Q4 PRN PRN Reason: Fever >99.4 F Last Admin: 03/27/18 08:18 Dose: 650 mg Enoxaparin Sodium (Lovenox) 40 mg SC DAILY [facility] Last Admin: 03/28/18 09:03 Dose: 40 mg Fentanyl (Duragesic) 1 patch TD Q72H [facility] Last Admin: 03/27/18 06:06 Dose: 1 patch Furosemide (Lasix) 40 mg IVP DAILY [facility] Last Admin: 03/28/18 09:03 Dose: 40 mg Hydromorphone HCl (Dilaudid) 2 mg IVP Q3H PRN PRN Reason: Pain, moderate (4-7) Last Admin: 03/28/18 15:09 Dose: 2 mg Piperacillin Sod/Tazobactam Sod (Zosyn 2.25 Gm Iv Premix) 2.25 gm in 50 mls @ 100 mls/hr IVPB Q6H JESSY PRN Reason: Protocol Last Admin: 03/28/18 13:06 Dose: 100 mls/hr Micafungin Sodium 100 mg/ (Sodium Chloride) 100 mls @ 100 mls/hr IV Q24H JESSY PRN Reason: Protocol Last Admin: 03/27/18 19:40 Dose: 100 mls/hr Magnesium Hydroxide (Milk Of Magnesia) 30 ml PO TID PRN PRN Reason: Constipation Vitamin A (Vitamin A & D Oint Ud Foilpak) 1 ea TOP BID PRN PRN Reason: dry lips Last Admin: 03/24/18 14:03 Dose: 1 ea Zolpidem Tartrate (Ambien) 5 mg PO HS PRN PRN Reason: Insomnia Last Admin: 03/27/18 22:12 Dose: 5 mg - Labs Labs: 03/28/18 07:40 03/28/18 07:40 PT 11.2 SECONDS (9.7-12.2) 03/23/18 19:52 INR 1.0 03/23/18 19:52 APTT 23 SECONDS (21-34) 03/23/18 19:52 - Constitutional Appears: Non-toxic, Chronically Ill - Head Exam Head Exam: NORMOCEPHALIC - Eye Exam Eye Exam: PERRL - ENT Exam ENT Exam: Mucous Membranes Dry - Neck Exam Neck Exam: absent: Lymphadenopathy - Respiratory Exam Respiratory Exam: Decreased Breath Sounds - Cardiovascular Exam Cardiovascular Exam: REGULAR RHYTHM - GI/Abdominal Exam GI & Abdominal Exam: Distended, Soft - Rectal Exam Rectal Exam: Deferred - Exam Exam: NORMAL INSPECTION - Extremities Exam Extremities Exam: absent: Pedal Edema Additional comments: bilat BKA - Back Exam Back Exam: absent: CVA tenderness (L), CVA tenderness (R) - Neurological Exam Neurological Exam: Alert, Awake, Oriented x3 - Psychiatric Exam Psychiatric exam: Normal Mood - Skin Skin Exam: Dry Assessment and Plan (1) History of left below knee amputation Status: Acute (2) CVA, old, hemiparesis Status: Acute (3) Cellulitis of foot Status: Acute (4) Dehydration Status: Acute (5) Gangrene of right foot Status: Acute
[2018-03-28] MEDS: Micafungin 100 MG in Sodium Chloride 0.9% 100 ML IV SCH (19:46)
[2018-03-29] MEDS: Piperacill/Tazo 2.25gm in Dex 2.25 GM/50 ML BAG IVPB SCH ×4 (00:41→19:30)
[2018-03-29] MEDS: HYDROmorphone 1 mg/ml ISec IVP PRN ×5 (02:00→19:43)
[2018-03-29 07:25] LABS: HEMOGLOBIN 10.7 g/dL (12.0-18.0); MEAN CELL VOLUME 83.6 fL (80.0-94.0); MEAN CORPUSCULAR HGB CONC 32.3 g/dL (33.0-37.0); MEAN PLATELET VOLUME 7.7 fL (7.2-11.7); RBC 3.96 Mil/uL (4.40-5.90); RED CELL DISTRIBUTION WIDTH 14.6 % (11.5-14.5); WHITE BLOOD COUNT 11.9 K/uL (4.8-10.8)
[2018-03-29 08:17] LABS: ALBUMIN 3.7 g/dL (3.5-5.0); BLOOD UREA NITROGEN 15 mg/dL (9-20); CALCIUM 8.8 mg/dl (8.6-10.4); GFR AFRICAN-AMERICAN > 60; GFR NON-AFRICAN AMERICAN > 60
[2018-03-29 08:18] LABS: ALB/GLOB RATIO 1.1 (1.0-2.1); ALT/SGPT 31 U/L (21-72); AST/SGOT 112 U/L (17-59)
[2018-03-29] MEDS: Enoxaparin 40 mg Syringe SC SCH (09:01)
[2018-03-29] MEDS: Vitamins A & D Oint UD Foilpak TOP PRN (09:03)
--- NOTE | 2018-03-29 12:54 | CP.PCM.PN ---
Subjective - Date & Time of Evaluation Date of Evaluation: 03/29/18 Time of Evaluation: 09:00 - Subjective Subjective: afeb on iv rx anxious to leave Objective - Vital Signs/Intake and Output Vital Signs (last 24 hours): Temp Pulse Resp BP Pulse Ox 98.9 F 111 H 20 131/71 95 03/29/18 08:02 03/29/18 08:02 03/29/18 08:02 03/29/18 09:01 03/29/18 08:02 Intake and Output: 03/29/18 03/29/18 06:59 18:59 Intake Total 940 Output Total 300 Balance 640 - Medications Medications: Current Medications Acetaminophen (Tylenol 325mg Tab) 650 mg PO Q4 PRN PRN Reason: Fever >99.4 F Last Admin: 03/27/18 08:18 Dose: 650 mg Alprazolam (Xanax) 1 mg PO Q8 PRN PRN Reason: Anxiety Stop: 04/05/18 06:59 Last Admin: 03/29/18 09:03 Dose: 1 mg Enoxaparin Sodium (Lovenox) [address] [facility] Last Admin: 03/29/18 09:01 Dose: 40 mg Fentanyl (Duragesic) 1 patch TD Q72H JESSY Last Admin: 03/27/18 06:06 Dose: 1 patch Furosemide (Lasix) [address] [facility] Last Admin: 03/29/18 09:01 Dose: 40 mg Hydromorphone HCl (Dilaudid) 1 mg IVP Q3H PRN PRN Reason: Pain, moderate (4-7) Last Admin: 03/29/18 12:00 Dose: 1 mg Piperacillin Sod/Tazobactam Sod (Zosyn 2.25 Gm Iv Premix) 2.25 gm in 50 mls @ 100 mls/hr IVPB Q6H JESSY PRN Reason: Protocol Last Admin: 03/29/18 05:58 Dose: 100 mls/hr Micafungin Sodium 100 mg/ (Sodium Chloride) 100 mls @ 100 mls/hr IV Q24H JESSY PRN Reason: Protocol Last Admin: 03/28/18 19:46 Dose: 100 mls/hr Magnesium Hydroxide (Milk Of Magnesia) 30 ml PO TID PRN PRN Reason: Constipation Last Admin: 07/16/18 09:02 Dose: 30 ml Vitamin A (Vitamin A & D Oint Ud Foilpak) 1 ea TOP BID PRN PRN Reason: dry lips Last Admin: 03/29/18 09:03 Dose: 1 ea Zolpidem Tartrate (Ambien) 5 mg PO HS PRN PRN Reason: Insomnia Last Admin: 03/27/18 22:12 Dose: 5 mg - Labs Labs: 03/29/18 06:52 03/29/18 06:52 PT 11.2 SECONDS (9.7-12.2) 03/23/18 19:52 INR 1.0 03/23/18 19:52 APTT 23 SECONDS (21-34) 03/23/18 19:52 - Constitutional Appears: Non-toxic, Chronically Ill - Head Exam Head Exam: NORMOCEPHALIC - Eye Exam Eye Exam: PERRL - ENT Exam ENT Exam: Mucous Membranes Dry - Neck Exam Neck Exam: absent: Lymphadenopathy - Respiratory Exam Respiratory Exam: Decreased Breath Sounds - Cardiovascular Exam Cardiovascular Exam: REGULAR RHYTHM - GI/Abdominal Exam GI & Abdominal Exam: Distended Assessment and Plan (1) History of left below knee amputation Status: Acute (2) CVA, old, hemiparesis Status: Acute (3) Cellulitis of foot Status: Acute (4) Dehydration Status: Acute (5) Gangrene of right foot Status: Acute
[2018-03-29] MEDS: Micafungin 100 MG in Sodium Chloride 0.9% 100 ML IV SCH (19:47)
--- NOTE | 2018-03-29 22:17 | CP.PCM.PN ---
Subjective - Date & Time of Evaluation Date of Evaluation: 03/29/18 Time of Evaluation: 09:45 - Subjective Subjective: Awake NAD Afebrile Objective - Vital Signs/Intake and Output Vital Signs (last 24 hours): Temp Pulse Resp BP Pulse Ox 98.5 F 114 H 20 125/67 93 L 03/29/18 21:17 03/29/18 21:17 03/29/18 21:17 03/29/18 21:17 03/29/18 15:00 Intake and Output: 03/29/18 03/30/18 18:59 06:59 Intake Total 440 500 Output Total 200 Balance 440 300 - Medications Medications: Current Medications Acetaminophen (Tylenol 325mg Tab) 650 mg PO Q4 PRN PRN Reason: Fever >99.4 F Last Admin: 03/29/18 18:50 Dose: 650 mg Alprazolam (Xanax) 1 mg PO Q8 PRN PRN Reason: Anxiety Stop: 04/05/18 06:59 Last Admin: 03/29/18 21:18 Dose: 1 mg Enoxaparin Sodium (Lovenox) 40 mg SC DAILY [facility] Last Admin: 03/29/18 09:01 Dose: 40 mg Fentanyl (Duragesic) 1 patch TD Q72H JESSY Last Admin: 03/27/18 06:06 Dose: 1 patch Furosemide (Lasix) 40 mg IVP DAILY [facility] Last Admin: 03/29/18 09:01 Dose: 40 mg Hydromorphone HCl (Dilaudid) 1 mg IVP Q3H PRN PRN Reason: Pain, moderate (4-7) Last Admin: 03/29/18 19:43 Dose: 1 mg Piperacillin Sod/Tazobactam Sod (Zosyn 2.25 Gm Iv Premix) 2.25 gm in 50 mls @ 100 mls/hr IVPB Q6H JESSY PRN Reason: Protocol Last Admin: 03/29/18 19:30 Dose: 100 mls/hr Micafungin Sodium 100 mg/ (Sodium Chloride) 100 mls @ 100 mls/hr IV Q24H JESSY PRN Reason: Protocol Last Admin: 03/29/18 19:47 Dose: 100 mls/hr Magnesium Hydroxide (Milk Of Magnesia) 30 ml PO TID PRN PRN Reason: Constipation Last Admin: 07/16/18 09:02 Dose: 30 ml Vitamin A (Vitamin A & D Oint Ud Foilpak) 1 ea TOP BID PRN PRN Reason: dry lips Last Admin: 03/29/18 09:03 Dose: 1 ea Zolpidem Tartrate (Ambien) 5 mg PO HS PRN PRN Reason: Insomnia Last Admin: 03/27/18 22:12 Dose: 5 mg - Labs Labs: 03/29/18 06:52 03/29/18 06:52 PT 11.2 SECONDS (9.7-12.2) 03/23/18 19:52 INR 1.0 03/23/18 19:52 APTT 23 SECONDS (21-34) 03/23/18 19:52 - Constitutional Appears: Non-toxic - Head Exam Head Exam: NORMAL INSPECTION - Eye Exam Eye Exam: absent: Scleral icterus - ENT Exam ENT Exam: absent: Mucous Membranes Moist - Neck Exam Neck Exam: Full ROM - Respiratory Exam Respiratory Exam: Clear to Ausculation Bilateral - Cardiovascular Exam Cardiovascular Exam: REGULAR RHYTHM - GI/Abdominal Exam GI & Abdominal Exam: Soft - Extremities Exam Additional comments: s/p rt BKA; hx of left BKA Assessment and Plan - Assessment and Plan (Free Text) Assessment: s/p rt BKA Sepsis Fungemia T2dm Plan: Cont abtx needs NEIDA Cont meds.
[2018-03-30] MEDS: Piperacill/Tazo 2.25gm in Dex 2.25 GM/50 ML BAG IVPB SCH ×4 (00:40→18:31)
[2018-03-30 07:24] LABS: HEMOGLOBIN 11.2 g/dL (12.0-18.0); MEAN CELL VOLUME 83.5 fL (80.0-94.0); MEAN CORPUSCULAR HEMOGLOBIN 27.2 pg (27.0-31.0); MEAN CORPUSCULAR HGB CONC 32.6 g/dL (33.0-37.0); MEAN PLATELET VOLUME 7.8 fL (7.2-11.7); RBC 4.12 Mil/uL (4.40-5.90); RED CELL DISTRIBUTION WIDTH 14.4 % (11.5-14.5); WHITE BLOOD COUNT 14.5 K/uL (4.8-10.8)
--- NOTE | 2018-03-30 07:47 | PN ---
DATE: 03/29/2018 SUBJECTIVE: I saw him this morning, resting in bed. He slept well. I do think that he is starting to improve. He needs to get lot of his pain meds and decrease the Dilaudid to 1 mg IV every 3. He is at fentanyl patch, cocaine, ethanol, and Xanax. He is on micafungin and Zosyn, which he can probably do at [facility] appropriately to get him today for rehab. PHYSICAL EXAMINATION: VITAL SIGNS: He has 98.4 temp, 110 pulse, 93 mean and 139/71 blood pressure, 20 respiratory rate, 97% O2 sat on 2 liters. HEENT: Head is atraumatic and normocephalic. HEART: Regular rate. LUNGS: Decreased breath sounds, but clear. ABDOMEN: Soft. EXTREMITIES: Bilateral BKA. He is growing pseudomonas from the wound and [place] in the blood. He is being seen by an Infectious Disease, Cardiology, and Surgery. Improving status post right BKA. IV antibiotics for 7 more days at a minimum. So if he is okay with surgery and Infectious Disease, we can send him to [facility] to antibiotics over there, physical therapy, and call case management to help us with discharge planning at [facility] for subacute rehab, hope to get it arranged later this afternoon or tomorrow. LABORATORY DATA: He has 12.6 white count yesterday and this morning is pending. His potassium was 3.7 that was yesterday, see with this morning labs. ASSESSMENT AND PLAN: He is status post right BKA if it matches left BKA status post peripheral vascular disease and gangrene of the foot. Edison Yadav DO [facility] C[facility]ERKarla
[2018-03-30 08:12] LABS: ALBUMIN 3.8 g/dL (3.5-5.0); ALT/SGPT 38 U/L (21-72); AST/SGOT 150 U/L (17-59); BLOOD UREA NITROGEN 15 mg/dL (9-20); CALCIUM 8.9 mg/dl (8.6-10.4); GFR AFRICAN-AMERICAN > 60; GFR NON-AFRICAN AMERICAN > 60
--- NOTE | 2018-03-30 09:04 | RAD ---
Date of service: 03/30/2018 HISTORY: cough COMPARISON: 03/23/2018 FINDINGS: LUNGS: Shallow lung volumes Left basal atelectasis and or infiltrate. Left pleural effusion increased since prior exam. Elevated right hemidiaphragm -underlying subpulmonic pathology not excluded. No change in appearance PLEURA: Left pleural effusion increased. Pneumothorax. CARDIOVASCULAR: Mild cardiomegaly similar Pulmonary vasculature minimal prominent -minimal pulmonary venous congestion due to shallow lung volumes compatible with this No change in appearance Left subclavian access port similar. OSSEOUS STRUCTURES: Partially visualized bilateral proximal humeral head orthopedic screws. VISUALIZED UPPER ABDOMEN: Normal. OTHER FINDINGS: Partially visualize left axillary surgical clips. -similar IMPRESSION: Interval increasing left pleural effusion with left basal atelectasis and or infiltrate. Elevated right hemidiaphragm-similar. Shallow lung volumes-similar. Other findings -as above.
[2018-03-30] MEDS: Enoxaparin 40 mg Syringe SC SCH (10:00)
--- NOTE | 2018-03-30 13:17 | CP.PCM.PN ---
Subjective - Date & Time of Evaluation Date of Evaluation: 03/30/18 Time of Evaluation: 10:00 - Subjective Subjective: iv rx renewed 'need 7 days IV then 7 days PO folllow up with Dr Pardo Objective - Vital Signs/Intake and Output Vital Signs (last 24 hours): Temp Pulse Resp BP Pulse Ox 98.0 F 90 20 120/75 97 03/30/18 08:10 03/30/18 08:10 03/30/18 08:10 03/30/18 09:59 03/30/18 08:10 Intake and Output: 03/30/18 03/30/18 06:59 18:59 Intake Total 800 Output Total 200 Balance 600 - Medications Medications: Current Medications Acetaminophen (Tylenol 325mg Tab) 650 mg PO Q4 PRN PRN Reason: Fever >99.4 F Last Admin: 03/29/18 18:50 Dose: 650 mg Alprazolam (Xanax) 1 mg PO Q8 PRN PRN Reason: Anxiety Stop: 04/05/18 06:59 Last Admin: 03/29/18 21:18 Dose: 1 mg Enoxaparin Sodium (Lovenox) 40 mg SC DAILY [facility] Last Admin: 03/30/18 10:00 Dose: 40 mg Fentanyl (Duragesic) 1 patch TD Q72H [facility] Last Admin: 03/30/18 07:25 Dose: 1 patch Furosemide (Lasix) 40 mg IVP DAILY [facility] Last Admin: 03/30/18 09:59 Dose: 40 mg Hydromorphone HCl (Dilaudid) 1 mg IVP Q3H PRN PRN Reason: Pain, moderate (4-7) Last Admin: 03/29/18 19:43 Dose: 1 mg Piperacillin Sod/Tazobactam Sod (Zosyn 2.25 Gm Iv Premix) 2.25 gm in 50 mls @ 100 mls/hr IVPB Q6H JESSY PRN Reason: Protocol Last Admin: 03/30/18 12:37 Dose: 100 mls/hr Micafungin Sodium 100 mg/ (Sodium Chloride) 100 mls @ 100 mls/hr IV Q24H JESSY PRN Reason: Protocol Last Admin: 03/29/18 19:47 Dose: 100 mls/hr Magnesium Hydroxide (Milk Of Magnesia) 30 ml PO TID PRN PRN Reason: Constipation Last Admin: 03/29/18 09:02 Dose: 30 ml Vitamin A (Vitamin A & D Oint Ud Foilpak) 1 ea TOP BID PRN PRN Reason: dry lips Last Admin: 03/29/18 09:03 Dose: 1 ea Zolpidem Tartrate (Ambien) 5 mg PO HS PRN PRN Reason: Insomnia Last Admin: 03/27/18 22:12 Dose: 5 mg - Labs Labs: 03/30/18 06:44 03/30/18 06:44 PT 11.2 SECONDS (9.7-12.2) 03/23/18 19:52 INR 1.0 03/23/18 19:52 APTT 23 SECONDS (21-34) 03/23/18 19:52 - Constitutional Appears: Non-toxic, Cachectic, Chronically Ill - Head Exam Head Exam: NORMOCEPHALIC - Eye Exam Eye Exam: absent: Scleral icterus - ENT Exam ENT Exam: Mucous Membranes Dry - Neck Exam Neck Exam: absent: Lymphadenopathy - Respiratory Exam Respiratory Exam: Decreased Breath Sounds - Cardiovascular Exam Cardiovascular Exam: REGULAR RHYTHM - GI/Abdominal Exam GI & Abdominal Exam: Distended Assessment and Plan (1) History of left below knee amputation Status: Acute (2) CVA, old, hemiparesis Status: Acute (3) Cellulitis of foot Status: Acute (4) Dehydration Status: Acute (5) Gangrene of right foot Status: Acute
[2018-03-30] MEDS: HYDROmorphone 1 mg/ml ISec IVP PRN ×2 (14:33→19:50)
[2018-03-30] MEDS: Micafungin 100 MG in Sodium Chloride 0.9% 100 ML IV SCH (19:39)
[2018-03-31] MEDS: HYDROmorphone 1 mg/ml ISec IVP PRN ×5 (04:00→22:31)
[2018-03-31] MEDS: Piperacill/Tazo 2.25gm in Dex 2.25 GM/50 ML BAG IVPB SCH ×4 (06:00→18:27)
--- NOTE | 2018-03-31 06:56 | DS ---
HISTORY OF PRESENT ILLNESS: He is right BKA, status post right foot gangrene and surgery. Now awaiting for authorization to go to [facility] for physical therapy before he goes home. He is on Ambien, Dilaudid, Duragesic patch, Lasix, Lovenox, micafungin, milk of magnesia, Tylenol, vitamin A and D, Xanax, and Zosyn. He slept very well last night. PHYSICAL EXAMINATION: VITAL SIGNS: He had a temperature of 100.4 last night, now it is 99.2, pulse 100, blood pressure 125/79, respiratory rate 20, and 99% O2 sat on nasal cannula. He also cough this morning. HEENT: Head is atraumatic and normocephalic. He is talking okay. He is alert. He understands the plan. He is trying to get some sleep. HEART: Regular rate. LUNGS: Decreased breath sounds. Mild congestion, changes with cough. ABDOMEN: Soft. EXTREMITIES: He has bilateral BKA. The right leg is bandaged. LABORATORY DATA: Labs are pending this morning. Yesterday, 11.9 white count, got better; 10.7 hemoglobin; and 269 platelets. His potassium is 3.4 yesterday, we replaced it. His BUN 16, creatinine 0.7, GFR greater than 60, this morning. He has Pseudomonas aeruginosa in foot. Labs are pending. ASSESSMENT AND PLAN: He is being seen by Infectious Disease, Cardiology, and Surgery. back this morning. chest x-ray. Awaiting authorization to [facility] for physical therapy later on this afternoon. Do a chest x-ray, blood test, and wait for authorization for case management and social professionals. We are trying to discharge to [facility] for physical therapy. Edison Yadav DO MTDD
--- NOTE | 2018-03-31 07:10 | CP.PCM.PN ---
Subjective - Date & Time of Evaluation Date of Evaluation: 03/30/18 Time of Evaluation: 08:15 - Subjective Subjective: Awake, NAD Afebrile No diarrhea No chest pain Objective - Vital Signs/Intake and Output Vital Signs (last 24 hours): Temp Pulse Resp BP Pulse Ox 98.9 F 97 H 20 125/82 99 03/31/18 06:00 03/30/18 23:10 03/30/18 23:10 03/30/18 23:10 03/30/18 23:10 Intake and Output: 03/31/18 03/31/18 06:59 18:59 Intake Total 715 Balance 715 - Medications Medications: Current Medications Acetaminophen (Tylenol 325mg Tab) 650 mg PO Q4 PRN PRN Reason: Fever >99.4 F Last Admin: 03/29/18 18:50 Dose: 650 mg Alprazolam (Xanax) 1 mg PO Q8 PRN PRN Reason: Anxiety Stop: 04/05/18 06:59 Last Admin: 03/29/18 21:18 Dose: 1 mg Enoxaparin Sodium (Lovenox) 40 mg SC DAILY [facility] Last Admin: 03/30/18 10:00 Dose: 40 mg Fentanyl (Duragesic) 1 patch TD Q72H [facility] Last Admin: 03/30/18 07:25 Dose: 1 patch Furosemide (Lasix) 40 mg IVP DAILY [facility] Last Admin: 03/30/18 09:59 Dose: 40 mg Hydromorphone HCl (Dilaudid) 1 mg IVP Q3H PRN PRN Reason: Pain, moderate (4-7) Last Admin: 03/31/18 04:00 Dose: 1 mg Piperacillin Sod/Tazobactam Sod (Zosyn 2.25 Gm Iv Premix) 2.25 gm in 50 mls @ 100 mls/hr IVPB Q6H JESSY PRN Reason: Protocol Last Admin: 03/31/18 06:00 Dose: 100 mls/hr Micafungin Sodium 100 mg/ (Sodium Chloride) 100 mls @ 100 mls/hr IV Q24H JESSY PRN Reason: Protocol Last Admin: 03/30/18 19:39 Dose: 100 mls/hr Magnesium Hydroxide (Milk Of Magnesia) 30 ml PO TID PRN PRN Reason: Constipation Last Admin: 03/29/18 09:02 Dose: 30 ml Vitamin A (Vitamin A & D Oint Ud Foilpak) 1 ea TOP BID PRN PRN Reason: dry lips Last Admin: 03/29/18 09:03 Dose: 1 ea Zolpidem Tartrate (Ambien) 5 mg PO HS PRN PRN Reason: Insomnia Last Admin: 03/27/18 22:12 Dose: 5 mg - Labs Labs: 03/30/18 06:44 03/30/18 06:44 PT 11.2 SECONDS (9.7-12.2) 03/23/18 19:52 INR 1.0 03/23/18 19:52 APTT 23 SECONDS (21-34) 03/23/18 19:52 - Constitutional Appears: Chronically Ill - Head Exam Head Exam: ATRAUMATIC - Eye Exam Eye Exam: absent: Scleral icterus - Neck Exam Neck Exam: Full ROM - Respiratory Exam Respiratory Exam: Decreased Breath Sounds - Cardiovascular Exam Cardiovascular Exam: REGULAR RHYTHM - GI/Abdominal Exam GI & Abdominal Exam: Soft - Extremities Exam Additional comments: bilateral BKA Assessment and Plan - Assessment and Plan (Free Text) Assessment: Sepsis Fungemia PVD Plan: Will do lexiscan when ok with ID Cont meds/abtx
[2018-03-31 07:13] LABS: HEMOGLOBIN 11.1 g/dL (12.0-18.0); MEAN CELL VOLUME 83.9 fL (80.0-94.0); MEAN CORPUSCULAR HEMOGLOBIN 26.6 pg (27.0-31.0); MEAN CORPUSCULAR HGB CONC 31.8 g/dL (33.0-37.0); MEAN PLATELET VOLUME 7.7 fL (7.2-11.7); RBC 4.18 Mil/uL (4.40-5.90); RED CELL DISTRIBUTION WIDTH 14.7 % (11.5-14.5); WHITE BLOOD COUNT 11.3 K/uL (4.8-10.8)
[2018-03-31 08:06] LABS: ALB/GLOB RATIO 0.9 (1.0-2.1); ALBUMIN 3.7 g/dL (3.5-5.0); ALT/SGPT 37 U/L (21-72); AST/SGOT 116 U/L (17-59); BLOOD UREA NITROGEN 16 mg/dL (9-20); CALCIUM 9.4 mg/dl (8.6-10.4); GFR AFRICAN-AMERICAN > 60; GFR NON-AFRICAN AMERICAN > 60
[2018-03-31] MEDS ORDERED: Potassium Chloride 20 mEq ER Tab PO ONE (09:17)
[2018-03-31] MEDS: Enoxaparin 40 mg Syringe SC SCH (10:25)
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
[2018-03-31] MEDS: Micafungin 100 MG in Sodium Chloride 0.9% 100 ML IV SCH (19:28)
[2018-04-01] MEDS: Piperacill/Tazo 2.25gm in Dex 2.25 GM/50 ML BAG IVPB SCH ×4 (01:00→18:35)
[2018-04-01] MEDS: HYDROmorphone 1 mg/ml ISec IVP PRN ×7 (01:27→23:17)
--- NOTE | 2018-04-01 05:48 | DS ---
I saw Severiano resting comfortably in bed. He is very upset that he does not get to drink enough water. Hopefully I can recheck him every hour and give him some water as he has no use of his arms. He is on Ambien, Dilaudid, Duragesic patch, Lasix, Lovenox, milk of magnesia, micafungin, Zosyn, potassium replacement, Tylenol, vitamin A and D and Xanax. PHYSICAL EXAMINATION: VITAL SIGNS: Temperature 98.9, pulse 97, blood pressure 125/82, respiratory rate 20, O2 sat 99% on 2 liters. HEENT: Head is atraumatic and normocephalic. Throat was dry. HEART: Regular rate. LUNGS: Decreased breath sounds bilaterally, but clear upper airway congestion. ABDOMEN: Soft. EXTREMITIES: Bilateral below-knee amputation. The right knee is bandaged secondary to an acute right below-knee amputation secondary to gangrene of the foot. He has a 14.5 white count that went up a little bit, 11.2 hemoglobin, 34.4 hematocrit, with 313 platelets. Sodium 141, potassium 3.3, it was replaced yesterday. BUN of 15, creatinine of 0.7. GFR is greater than 60. Sugar is 126. Calcium is 8.9, total bili is 0.7, AST is 150, ALT is 30, alk phos 142, total protein 7.6. Wait and see hoping to possibly discharge him today if the labs are better, and if it is okay with Infectious Disease and Orthopedics, he does want to go to [facility] and start physical therapy. Once he is okay medically, we will discharge him. Edison Yadav DO MTDD
[2018-04-01 07:37] LABS: MEAN CELL VOLUME 83.1 fL (80.0-94.0); MEAN CORPUSCULAR HEMOGLOBIN 27.5 pg (27.0-31.0); MEAN CORPUSCULAR HGB CONC 33.2 g/dL (33.0-37.0); MEAN PLATELET VOLUME 7.7 fL (7.2-11.7); RBC 3.99 Mil/uL (4.40-5.90); RED CELL DISTRIBUTION WIDTH 14.6 % (11.5-14.5); WHITE BLOOD COUNT 10.3 K/uL (4.8-10.8)
[2018-04-01 07:53] LABS: ALBUMIN 3.7 g/dL (3.5-5.0); ALT/SGPT 29 U/L (21-72); AST/SGOT 97 U/L (17-59); BLOOD UREA NITROGEN 17 mg/dL (9-20); CALCIUM 9.3 mg/dl (8.6-10.4); GFR AFRICAN-AMERICAN > 60; GFR NON-AFRICAN AMERICAN > 60
[2018-04-01] MEDS: Enoxaparin 40 mg Syringe SC SCH (09:15)
--- NOTE | 2018-04-01 10:59 | PN ---
DATE: 04/01/2018 SUBJECTIVE: I saw him this morning. He was a lot better in bed while awake, woke up here and sitting comfortable. He is on Ambien, Dilaudid, Duragesic, Lasix, Lovenox, micafungin, Milk of Magnesia, Tylenol, vitamin A and D, Xanax, Zosyn. He has to finish the micafungin before he goes to [facility], they would not accept that there, and he could be on I believe oral antibiotics after that for seven more days. He does physical therapy. He is quite weak. Also, he tells me his Surgery has not seen his right stump yet. I have to take a look at that, but he is improving and doing better. He also has a stress test today. PHYSICAL EXAMINATION: VITAL SIGNS: He has a 98.1 temperature, 85 pulse, 135/80 blood pressure, 20 respiratory rate, 100% O2 sat on room air. HEENT: Atraumatic, normocephalic. HEART: Regular rate. LUNGS: Decreased breath sounds, but clear. ABDOMEN: Soft and nontender. Positive bowel sounds. EXTREMITIES: Bilateral BKA. Right leg is bandaged. Both arms are very weak and he has poor motion in the shoulders. He has a 11.3 white count better, 11.1 hemoglobin, 35.1 hematocrit, and 346,000 platelets that was yesterday, improving. Sodium 141, potassium 3, CO2 is 43. I asked for Pulmonary to come in and look at him. BUN is 16, creatinine 0.8. GFR is greater than 60. Sugar is 136, calcium 9.4, AST is 116, ALT is 37, alk phos is 9, total protein is 7.8. He was seen by Pulmonary, Infectious Disease, Cardiology. Chest x-ray showed interval increase in left pleural effusion, possible atelectasis similar to the last x-ray, and Pulmonary saw the patient for elevated CO2 or continue the aggressive postop care, Infectious Disease with antibiotics. He is going to go for a stress test today and then when we can we will send him to [facility] for physical therapy before he goes home. He is status post right BKA for gangrene. I discussed with the family. Edison Yadav DO [facility] # [id number]
--- NOTE | 2018-04-01 16:46 | CP.PCM.PN ---
Subjective - Date & Time of Evaluation Date of Evaluation: 04/01/18 Time of Evaluation: 11:00 - Subjective Subjective: pain and gangrenous changes to the right foot HPI: Patient was seen and examined at bedside. Patient reports that his breathing is the same as yesterday feeling shortness of breath and congestion. Patient reports a cough that is non-productive. Patient is awake and alert. Patient is afebrile. Patient denies nausea, vomiting, diarrhea, chest pain and headaches. As per nurse patient's CO2 level this morning was 41. ROS: Constitutional: Patient denies fever and chills Cardiovascular: Patient denies chest pain, palpitations Respiratory: Patient reports shortness of breath, non-productive cough Gastrointestinal: Patient denies nausea, vomiting, diarrhea. Neurological: AAO X3, normal speech PMH: PVD, L BKA Social History: Patient is a former smoker, reports alcohol consumption socially Surgical History: L BKA Allergies: No known drug allergies Physical Exam HEENT: Atraumatic, normocephalic, mucuous membranes moist Respiratory: Decreased breath sounds bilaterally. Negative for wheezing, rales, rhonchi. Cardiovascular: +S1/S2, regular rate and rhythm GI: Normal bowel sounds in all four quadrants, no tenderness to palpation, no distension. PEG tube in place. Extremities: No LE edema Neurological: Alert, awake, oriented X3 Assessment: 72 year old male patient with past medical history of PVD and left BKA; patient being treated for foot cellulitis and pneumonia 1. Cellulitis of foot/left lower lobe pneumonia Status: Acute - Micafungin Sodium 100 in Sodium Chloride 100 mls @ 100 mls/hr IV Q24H - Piperacillin Sod/ Tazobactam Sod 2.25 gm in 50 mls @ 100 mls/ hr IVPB Q6H 2. Gangrene of foot Status: Acute 3. Dehydration Status: Acute Objective - Vital Signs/Intake and Output Vital Signs (last 24 hours): Temp Pulse Resp BP Pulse Ox 98.4 F 92 H 20 112/72 96 04/01/18 15:42 04/01/18 15:42 04/01/18 15:42 04/01/18 15:42 04/01/18 15:42 Intake and Output: 04/01/18 04/01/18 06:59 18:59 Intake Total 1310 450 Balance 1310 450 - Medications Medications: Current Medications Acetaminophen (Tylenol 325mg Tab) 650 mg PO Q4 PRN PRN Reason: Fever >99.4 F Last Admin: 03/29/18 18:50 Dose: 650 mg Alprazolam (Xanax) 1 mg PO Q8 PRN PRN Reason: Anxiety Stop: 04/05/18 06:59 Last Admin: 03/29/18 21:18 Dose: 1 mg Enoxaparin Sodium (Lovenox) 40 mg SC DAILY [facility] Last Admin: 04/01/18 09:15 Dose: 40 mg Fentanyl (Duragesic) 1 patch TD Q72H JESSY Last Admin: 03/30/18 07:25 Dose: 1 patch Furosemide (Lasix) 40 mg IVP DAILY [facility] Last Admin: 04/01/18 09:13 Dose: 40 mg Hydromorphone HCl (Dilaudid) 1 mg IVP Q3H PRN PRN Reason: Pain, moderate (4-7) Last Admin: 04/01/18 13:46 Dose: 1 mg Piperacillin Sod/Tazobactam Sod (Zosyn 2.25 Gm Iv Premix) 2.25 gm in 50 mls @ 100 mls/hr IVPB Q6H JESSY PRN Reason: Protocol Last Admin: 04/01/18 13:29 Dose: 100 mls/hr Micafungin Sodium 100 mg/ (Sodium Chloride) 100 mls @ 100 mls/hr IV Q24H JESSY PRN Reason: Protocol Last Admin: 03/31/18 19:28 Dose: 100 mls/hr Magnesium Hydroxide (Milk Of Magnesia) 30 ml PO TID PRN PRN Reason: Constipation Last Admin: 03/29/18 09:02 Dose: 30 ml Potassium Chloride (K-Dur 20 Meq Er Tab) 40 meq PO ONCE ONE Stop: 04/01/18 18:01 Vitamin A (Vitamin A & D Oint Ud Foilpak) 1 ea TOP BID PRN PRN Reason: dry lips Last Admin: 03/29/18 09:03 Dose: 1 ea Zolpidem Tartrate (Ambien) 5 mg PO HS PRN PRN Reason: Insomnia Last Admin: 03/27/18 22:12 Dose: 5 mg - Labs Labs: 04/01/18 07:25 04/01/18 07:25 PT 11.2 SECONDS (9.7-12.2) 03/23/18 19:52 INR 1.0 03/23/18 19:52 APTT 23 SECONDS (21-34) 03/23/18 19:52
[2018-04-01 17:14] LABS: ABG ALLEN TEST PO; ARTERIAL BLOOD GAS HCO3 38.4 mmol/L (21-28); ARTERIAL BLOOD GAS O2 SAT 98.6 % (95-98); ARTERIAL BLOOD GAS PCO2 59 mm/Hg (35-45); ARTERIAL BLOOD GAS PH 7.48 (7.35-7.45); ARTERIAL BLOOD GAS PO2 94 mm/Hg (80-100); ARTERIAL BLOOD GAS TCO2 45.7 mmol/L (22-28)
[2018-04-01] MEDS ORDERED: Potassium Chloride 20 mEq ER Tab PO ONE (18:00)
[2018-04-01] MEDS: Micafungin 100 MG in Sodium Chloride 0.9% 100 ML IV SCH (19:51)
[2018-04-02] MEDS: Piperacill/Tazo 2.25gm in Dex 2.25 GM/50 ML BAG IVPB SCH ×4 (01:18→20:39)
[2018-04-02] MEDS: HYDROmorphone 1 mg/ml ISec IVP PRN ×4 (04:00→20:39)
[2018-04-02 07:30] LABS: HEMOGLOBIN 11.3 g/dL (12.0-18.0); MEAN CELL VOLUME 82.1 fL (80.0-94.0); MEAN CORPUSCULAR HEMOGLOBIN 27.8 pg (27.0-31.0); MEAN CORPUSCULAR HGB CONC 33.8 g/dL (33.0-37.0); MEAN PLATELET VOLUME 7.2 fL (7.2-11.7); RBC 4.07 Mil/uL (4.40-5.90); WHITE BLOOD COUNT 9.4 K/uL (4.8-10.8)
[2018-04-02 08:15] LABS: ALB/GLOB RATIO 0.9 (1.0-2.1); ALBUMIN 3.8 g/dL (3.5-5.0); ALT/SGPT 27 U/L (21-72); AST/SGOT 86 U/L (17-59); BLOOD UREA NITROGEN 14 mg/dL (9-20); CALCIUM 9.5 mg/dl (8.6-10.4); GFR AFRICAN-AMERICAN > 60; GFR NON-AFRICAN AMERICAN > 60
--- NOTE | 2018-04-02 08:35 | PN ---
DATE: 04/02/2018 SUBJECTIVE: I saw Mr. Penn in the bed. He is not happy here. He does not like the food here. He tried to do the stress test yesterday. He has a long IV axis which today they are going to do it. It is supposed to be n.p.o. this morning. He is on Ambien, Dilaudid, Duragesic, Lasix, Lovenox, micafungin, Milk of Magnesia, Tylenol, vitamin A and D, Xanax, and Zosyn. PHYSICAL EXAMINATION VITAL SIGNS: He has 97.8 temperature, 77 pulse, 130/77 blood pressure, 20 respiratory rate, 90% O2 sat on room air. HEENT: Atraumatic, normocephalic. HEART: Regular rate. LUNGS: Decreased breath sounds, but clear. ABDOMEN: Soft and nontender. EXTREMITIES: Bilateral 00:36 BKA with a right stump bandaged. He keeps on telling me that the Surgery has not been by to re-check it. LABORATORY DATA: His white count is under 11 with 10.3 best it has been. Hemoglobin 11, hematocrit 36.1, and platelets of 410. He has 139 sodium, potassium 3.4, carbon dioxide is down to 41, still high though, BUN 17, creatinine 0.7, GFR is within 62, sugar is 126, calcium is 9.3, total belia is 0.6, AST is 97 best it has been, ALT is 29, alk phos is 94, and total protein is 7.6. ASSESSMENT AND PLAN: He has been seen by Pulmonary, Infectious Disease, Cardiology. He had chest x-ray on . I am hoping that I get the okay from the Surgery and Infectious Disease and Cardiology to start getting at [facility] with physical therapy. Continue with aggressive treatment and care. Await labs this morning. Discussed with the , who is here for right foot gangrene, status post BKA. Edison Yadav DO [facility] CENTERKarla
[2018-04-02] MEDS: Enoxaparin 40 mg Syringe SC SCH (10:30)
--- NOTE | 2018-04-02 13:59 | CP.PCM.PN ---
Subjective - Date & Time of Evaluation Date of Evaluation: 04/01/18 Time of Evaluation: 08:30 - Subjective Subjective: no cough less sob no chest pain Objective - Vital Signs/Intake and Output Vital Signs (last 24 hours): Temp Pulse Resp BP Pulse Ox 97.9 F 80 20 123/80 95 04/02/18 07:33 04/02/18 07:33 04/02/18 07:33 04/02/18 10:30 04/02/18 07:33 Intake and Output: 04/02/18 04/02/18 06:59 18:59 Intake Total 450 50 Balance 450 50 - Medications Medications: Current Medications Acetaminophen (Tylenol 325mg Tab) 650 mg PO Q4 PRN PRN Reason: Fever >99.4 F Last Admin: 03/29/18 18:50 Dose: 650 mg Alprazolam (Xanax) 1 mg PO Q8 PRN PRN Reason: Anxiety Stop: 04/05/18 06:59 Last Admin: 03/29/18 21:18 Dose: 1 mg Enoxaparin Sodium (Lovenox) 40 mg SC DAILY [facility] Last Admin: 04/02/18 10:30 Dose: 40 mg Fentanyl (Duragesic) 1 patch TD Q72H [facility] Last Admin: 04/02/18 06:51 Dose: 1 patch Furosemide (Lasix) 40 mg IVP DAILY [facility] Last Admin: 04/02/18 10:30 Dose: 40 mg Hydromorphone HCl (Dilaudid) 1 mg IVP Q3H PRN PRN Reason: Pain, moderate (4-7) Last Admin: 04/02/18 07:02 Dose: 1 mg Piperacillin Sod/Tazobactam Sod (Zosyn 2.25 Gm Iv Premix) 2.25 gm in 50 mls @ 100 mls/hr IVPB Q6H JESSY PRN Reason: Protocol Last Admin: 04/02/18 12:25 Dose: 100 mls/hr Micafungin Sodium 100 mg/ (Sodium Chloride) 100 mls @ 100 mls/hr IV Q24H JESSY PRN Reason: Protocol Last Admin: 04/01/18 19:51 Dose: 100 mls/hr Magnesium Hydroxide (Milk Of Magnesia) 30 ml PO TID PRN PRN Reason: Constipation Last Admin: 03/29/18 09:02 Dose: 30 ml Vitamin A (Vitamin A & D Oint Ud Foilpak) 1 ea TOP BID PRN PRN Reason: dry lips Last Admin: 03/29/18 09:03 Dose: 1 ea Zolpidem Tartrate (Ambien) 5 mg PO HS PRN PRN Reason: Insomnia Last Admin: 03/27/18 22:12 Dose: 5 mg - Labs Labs: 04/02/18 07:18 04/02/18 07:18 PT 11.2 SECONDS (9.7-12.2) 03/23/18 19:52 INR 1.0 03/23/18 19:52 APTT 23 SECONDS (21-34) 03/23/18 19:52 - Constitutional Appears: Non-toxic - Head Exam Head Exam: NORMAL INSPECTION - Eye Exam Eye Exam: absent: Scleral icterus - ENT Exam ENT Exam: Mucous Membranes Moist - Neck Exam Neck Exam: Full ROM - Respiratory Exam Respiratory Exam: Rhonchi - Cardiovascular Exam Cardiovascular Exam: REGULAR RHYTHM - GI/Abdominal Exam GI & Abdominal Exam: Soft. absent: Organomegaly - Extremities Exam Additional comments: s/p bilateral BKA - Neurological Exam Neurological Exam: Alert, Oriented x3 Assessment and Plan - Assessment and Plan (Free Text) Assessment: Cellulitis PVD s/p rt Bka T2dm Plan: Cont abtx Lexiscan in am
--- NOTE | 2018-04-02 14:03 | CP.PCM.PN ---
Subjective - Date & Time of Evaluation Date of Evaluation: 03/31/18 Time of Evaluation: 08:45 - Subjective Subjective: sob coughing Afebrile Objective - Vital Signs/Intake and Output Vital Signs (last 24 hours): Temp Pulse Resp BP Pulse Ox 97.9 F 80 20 123/80 95 04/02/18 07:33 04/02/18 07:33 04/02/18 07:33 04/02/18 10:30 04/02/18 07:33 Intake and Output: 04/02/18 04/02/18 06:59 18:59 Intake Total 450 50 Balance 450 50 - Medications Medications: Current Medications Acetaminophen (Tylenol 325mg Tab) 650 mg PO Q4 PRN PRN Reason: Fever >99.4 F Last Admin: 03/29/18 18:50 Dose: 650 mg Alprazolam (Xanax) 1 mg PO Q8 PRN PRN Reason: Anxiety Stop: 04/05/18 06:59 Last Admin: 03/29/18 21:18 Dose: 1 mg Enoxaparin Sodium (Lovenox) 40 mg SC DAILY [facility] Last Admin: 04/02/18 10:30 Dose: 40 mg Fentanyl (Duragesic) 1 patch TD Q72H [facility] Last Admin: 04/02/18 06:51 Dose: 1 patch Furosemide (Lasix) 40 mg IVP DAILY [facility] Last Admin: 04/02/18 10:30 Dose: 40 mg Hydromorphone HCl (Dilaudid) 1 mg IVP Q3H PRN PRN Reason: Pain, moderate (4-7) Last Admin: 04/02/18 07:02 Dose: 1 mg Piperacillin Sod/Tazobactam Sod (Zosyn 2.25 Gm Iv Premix) 2.25 gm in 50 mls @ 100 mls/hr IVPB Q6H JESSY PRN Reason: Protocol Last Admin: 04/02/18 12:25 Dose: 100 mls/hr Micafungin Sodium 100 mg/ (Sodium Chloride) 100 mls @ 100 mls/hr IV Q24H JESSY PRN Reason: Protocol Last Admin: 04/01/18 19:51 Dose: 100 mls/hr Magnesium Hydroxide (Milk Of Magnesia) 30 ml PO TID PRN PRN Reason: Constipation Last Admin: 03/29/18 09:02 Dose: 30 ml Vitamin A (Vitamin A & D Oint Ud Foilpak) 1 ea TOP BID PRN PRN Reason: dry lips Last Admin: 03/29/18 09:03 Dose: 1 ea Zolpidem Tartrate (Ambien) 5 mg PO HS PRN PRN Reason: Insomnia Last Admin: 03/27/18 22:12 Dose: 5 mg - Labs Labs: 04/02/18 07:18 04/02/18 07:18 PT 11.2 SECONDS (9.7-12.2) 03/23/18 19:52 INR 1.0 03/23/18 19:52 APTT 23 SECONDS (21-34) 03/23/18 19:52 - Constitutional Appears: Chronically Ill - Eye Exam Eye Exam: absent: Scleral icterus - Neck Exam Neck Exam: Full ROM - Respiratory Exam Respiratory Exam: Rhonchi - Cardiovascular Exam Cardiovascular Exam: REGULAR RHYTHM - GI/Abdominal Exam GI & Abdominal Exam: Soft. absent: Organomegaly - Extremities Exam Additional comments: s/p bilateral BKA - Neurological Exam Neurological Exam: Alert, Oriented x3 Assessment and Plan - Assessment and Plan (Free Text) Assessment: Sepsis COPD PVD s/p bilateral BKA Hx of CVA Plan: Cont antibiotic Cont bronchodilators Case discussed with Dr Zelaya and Dr Avina
--- NOTE | 2018-04-02 18:29 | CP.PCM.PN ---
Subjective - Date & Time of Evaluation Date of Evaluation: 04/02/18 Time of Evaluation: 09:00 - Subjective Subjective: no fever iv antibiotics near completion need to cont diflucan po Objective - Vital Signs/Intake and Output Vital Signs (last 24 hours): Temp Pulse Resp BP Pulse Ox 98 F 91 H 20 136/85 97 04/02/18 15:48 04/02/18 15:48 04/02/18 15:48 04/02/18 15:48 04/02/18 15:48 Intake and Output: 04/02/18 04/02/18 06:59 18:59 Intake Total 450 100 Balance 450 100 - Medications Medications: Current Medications Acetaminophen (Tylenol 325mg Tab) 650 mg PO Q4 PRN PRN Reason: Fever >99.4 F Last Admin: 03/29/18 18:50 Dose: 650 mg Alprazolam (Xanax) 1 mg PO Q8 PRN PRN Reason: Anxiety Stop: 04/05/18 06:59 Last Admin: 03/29/18 21:18 Dose: 1 mg Enoxaparin Sodium (Lovenox) 40 mg SC DAILY [facility] Last Admin: 04/02/18 10:30 Dose: 40 mg Fentanyl (Duragesic) 1 patch TD Q72H JESSY Last Admin: 04/02/18 06:51 Dose: 1 patch Furosemide (Lasix) 40 mg IVP DAILY [facility] Last Admin: 04/02/18 10:30 Dose: 40 mg Hydromorphone HCl (Dilaudid) 1 mg IVP Q3H PRN PRN Reason: Pain, moderate (4-7) Last Admin: 04/02/18 15:57 Dose: 1 mg Piperacillin Sod/Tazobactam Sod (Zosyn 2.25 Gm Iv Premix) 2.25 gm in 50 mls @ 100 mls/hr IVPB Q6H JESSY PRN Reason: Protocol Last Admin: 04/02/18 12:25 Dose: 100 mls/hr Micafungin Sodium 100 mg/ (Sodium Chloride) 100 mls @ 100 mls/hr IV Q24H JESSY PRN Reason: Protocol Last Admin: 04/01/18 19:51 Dose: 100 mls/hr Magnesium Hydroxide (Milk Of Magnesia) 30 ml PO TID PRN PRN Reason: Constipation Last Admin: 03/29/18 09:02 Dose: 30 ml Vitamin A (Vitamin A & D Oint Ud Foilpak) 1 ea TOP BID PRN PRN Reason: dry lips Last Admin: 03/29/18 09:03 Dose: 1 ea Zolpidem Tartrate (Ambien) 5 mg PO HS PRN PRN Reason: Insomnia Last Admin: 03/27/18 22:12 Dose: 5 mg - Labs Labs: 04/02/18 07:18 04/02/18 07:18 PT 11.2 SECONDS (9.7-12.2) 03/23/18 19:52 INR 1.0 03/23/18 19:52 APTT 23 SECONDS (21-34) 03/23/18 19:52 - Constitutional Appears: Non-toxic, Chronically Ill - Head Exam Head Exam: NORMOCEPHALIC - Eye Exam Eye Exam: PERRL - ENT Exam ENT Exam: Mucous Membranes Dry - Neck Exam Neck Exam: absent: Lymphadenopathy - Respiratory Exam Respiratory Exam: Decreased Breath Sounds - Cardiovascular Exam Cardiovascular Exam: REGULAR RHYTHM - GI/Abdominal Exam GI & Abdominal Exam: Distended - Rectal Exam Rectal Exam: Deferred - Exam Exam: NORMAL INSPECTION - Extremities Exam Additional comments: bilat BKA - Back Exam Back Exam: absent: CVA tenderness (L), CVA tenderness (R) - Neurological Exam Neurological Exam: Alert, Awake, Oriented x3 Assessment and Plan (1) History of left below knee amputation Status: Acute (2) CVA, old, hemiparesis Status: Acute (3) Cellulitis of foot Status: Acute (4) Dehydration Status: Acute (5) Gangrene of right foot Status: Acute
[2018-04-02] MEDS: Micafungin 100 MG in Sodium Chloride 0.9% 100 ML IV SCH (20:46)
[2018-04-03] MEDS: Piperacill/Tazo 2.25gm in Dex 2.25 GM/50 ML BAG IVPB SCH ×3 (01:17→14:00)
[2018-04-03] MEDS: HYDROmorphone 1 mg/ml ISec IVP PRN ×2 (06:40→14:23)
[2018-04-03 06:46] LABS: HEMOGLOBIN 11.4 g/dL (12.0-18.0); MEAN CELL VOLUME 83.1 fL (80.0-94.0); MEAN CORPUSCULAR HEMOGLOBIN 27.7 pg (27.0-31.0); MEAN CORPUSCULAR HGB CONC 33.3 g/dL (33.0-37.0); MEAN PLATELET VOLUME 7.4 fL (7.2-11.7); RBC 4.14 Mil/uL (4.40-5.90); RED CELL DISTRIBUTION WIDTH 14.2 % (11.5-14.5); WHITE BLOOD COUNT 8.5 K/uL (4.8-10.8)
[2018-04-03] MEDS: Vitamins A & D Oint UD Foilpak TOP PRN (06:49)
[2018-04-03 07:12] LABS: ALB/GLOB RATIO 0.9 (1.0-2.1); ALBUMIN 3.8 g/dL (3.5-5.0); ALT/SGPT 22 U/L (21-72); AST/SGOT 88 U/L (17-59); BLOOD UREA NITROGEN 17 mg/dL (9-20); CALCIUM 9.4 mg/dl (8.6-10.4); GFR AFRICAN-AMERICAN > 60; GFR NON-AFRICAN AMERICAN > 60
[2018-04-03] MEDS: Enoxaparin 40 mg Syringe SC SCH (09:45)
[2018-04-03] MEDS ORDERED: Potassium Chloride 20 mEq ER Tab PO ONE (09:47)
[2018-04-03] MEDS ORDERED: Potassium Chloride 10 mEq ER Tab PO SCH (10:00)
[2018-04-03] MEDS ORDERED: Pneumococcal 23-Valent Vaccine IM ONE (16:09)
[2018-04-03 16:50] VITALS: BP 145/81; PULSE 95; TEMP 98; O2SAT 96
--- NOTE | 2018-04-03 22:02 | CARD ---
APPROVED REPORT Date of service: 04/01/2018 Protocol: LEXISCAN Test Type: LEXISCAN STRESS Test Indications: CARDIAC FUNCTION Target HR: 150 bpm Resting ECG: NSR W/ OCC APB'S Resting Heart Rate: 76 bpm Resting Blood Pressure: 140/80mmHg submaximum (85%): 128 bpm TEST SUMMARY [id number]:02..1.086/.0. PREINFSNHYPERV.01:[id number]/80.0. INFUSIONDOSE 100:300.00.01.081/.0. QKRZEMVNL09:[id number]/80.0. PROCEDURE Pharmacologic stress testing was performed using 0.4mg per 5ml of regadenoson given intravenously over 7-10 seconds. POST EXERCISE Reason for Termination: Protocol Completed Target HR: No Max HR: 81 bpm 72% of Maximum Predicted HR: 150 bpm Exercise duration: 00:30 min:sec, 0 Stage Exercise capacity: 1.0METs Max Blood Pressure: 140/80mmHg Blood Pressure response to exercise: normal resting BP - appropriate response Heart Rate response to exercise: appropriate Chest Pain: No, none Angina index: 0 Arrhythmia: Yes, atrial premature beats ST Change: No, none Deviation: 0 mm INTERPRETATION Stress EKG Conclusion: NEGATIVE LEXISCAN STRESS TEST NORMAL BP RESPONSE TO LEXISCAN NUCLEAR STUDIES TO BE READ SEPARATELY EXAM: Myocardial Perfusion STRESS/REST Imaging Protocol The imaging protocol used to acquire images was Stress Tc-99m/rest Tc-99m 1 day Stress Spect myocardial perfusion imaging was performed in supine position 40 minutes following the injection of 13.2 mCi of Tc-99 Myoview. Gated Rest Spect was performed 41 minutes after intravenous 32.1 mCi Tc-99 Myoview injection. The images were gated to evaluate regional wall motion and calculate ventricular ejection fraction.Images were reconstructed using backfilter projection method in short horizontal and verticle long axis. Spect slices were generated. RESTING DATA EDV86.66zpBN5.00L/min ESV42.00mlMyocardial Ymbl133.00g Av. Heart Rate90.00bpm EF51.00% STRESS DATA EDV84.86lkPI2.60L/min ESV42.00mlMyocardial Fjsk690.00g EF50.00% Regional WT score at stress:3.00 Regional WM score at stress:1.00 Summed WT score at stress:17.00 Av. Heart Rate85.00bpmSummed WM score at stress:16.00 LV Perf. Quant 17 Seg. SSS1.00 17 Seg. SRS5.00 17 Seg. SDS0.00 Stress Defect Extent (% LAD)0.00Rest Defect Extent (% LAD)0.00Rev. Defect Extent (% LAD)0.00 Stress Defect Extent (% LCX)16.30Rest Defect Extent (% LCX)0.00Rev. Defect Extent (% LCX)0.00 Stress Defect Extent (% RCA)0.00Rest Defect Extent (% RCA)18.90Rev. Defect Extent (% RCA)0.00 Stress Defect Extent (% MELVA)2.80Rest Defect Extent (% MELVA)5.40Rev. Defect Extent (% MELVA)0.00 IMPRESSION Abnormal Myocardial Perfusion exercise stress study Left Ventricle LV Function:Left ventricle systolic function is normal. The Ejection Fraction is 50-55%. Regional Wall Motion:There is normal left ventricular wall motion. Metabolism/Perfusion Defects: There is stress-induced partially reversible ischemia in the inferior wall noted. Conclusion 1. There is scan evidence of partially reversible ischemia in the inferior wall noted. 2. Left ventricle systolic function is normal. 3. The Ejection Fraction is 50-55%.
--- NOTE | 2018-04-05 09:39 | DS ---
HISTORY OF PRESENT ILLNESS: He is resting comfortably in bed. Very alert, very talkative, pain is less, status post right BKA, been going to [facility] for IV antibiotics and physical therapy. He is on Ambien, Dilaudid, which will stop, Duragesic patch which he will continue, Lasix, Lovenox, he'll be off the micafungin, Milk of Magnesia, Tylenol, vitamin A, and D, Xanax, and Zosyn. PHYSICAL EXAMINATION: VITAL SIGNS: He has a 98.6 temperature, 88 pulse, 130/80 blood pressure, 20 respiratory rate, 95% O2 sat on room air. HEENT: Head is atraumatic and normocephalic. Throat is moist. NECK: Supple. HEART: Regular rate. LUNGS: Decreased breath sounds with poor inspiration. ABDOMEN: Soft. Nontender. Positive bowel sounds. Bilateral BKA with right BKA is bandaged. LABORATORY DATA: He has 8.5 white count, 11.4 hemoglobin, 34.4 hematocrit, 484 platelets. He has best white count he has had here. He has 139 sodium, potassium 3.1, potassium. BUN is 17, creatinine 0.8, troponin 0.7, sugar is 113, calcium 9.4, total bili is 0.5, AST is 88, ALT 22, alk phos 96, and total protein is 8.1. ASSESSMENT AND PLAN: I am going to put him on potassium on a regular basis, was given extra one and we will follow the labs at [facility]. I will be seeing him there tomorrow. He will be discharged there and was here for gangrenous infected right foot status post BKA. Edison Yadav DO MTDD
== END 2018-04-03 17:59 | DRG 239 ==
LOC: C.ER 17:09 → C.9E 18:04 → C.3T 19:39
PROVIDERS: ADMIT Family Medicine; ATTEND Family Medicine
PROC: 0Y6M0ZD Detachment at Right Foot, Partial 4th Ray, Open Approach (ICD-10-PCS; 2018-03-24)
PROC: 0Y6M0ZF Detachment at Right Foot, Partial 5th Ray, Open Approach (ICD-10-PCS; 2018-03-24)
PROC: 0JPT0WZ Removal of Totally Implantable Vascular Access Device from Trunk Subcutaneous Tissue and Fascia, Open Approach (ICD-10-PCS; 2018-03-24)
PROC: 0JH60WZ Insertion of Totally Implantable Vascular Access Device into Chest Subcutaneous Tissue and Fascia, Open Approach (ICD-10-PCS; 2018-03-24)
PROC: 02PY33Z Removal of Infusion Device from Great Vessel, Percutaneous Approach (ICD-10-PCS; 2018-03-24)
PROC: 02HV33Z Insertion of Infusion Device into Superior Vena Cava, Percutaneous Approach (ICD-10-PCS; 2018-03-24)
PROC: B518ZZA Fluoroscopy of Superior Vena Cava, Guidance (ICD-10-PCS; 2018-03-24)
PROC: 0Y6M0ZC Detachment at Right Foot, Partial 3rd Ray, Open Approach (ICD-10-PCS; 2018-03-24 18:45)
PROC: 0Y6H0Z1 Detachment at Right Lower Leg, High, Open Approach (ICD-10-PCS; principal; 2018-03-26 15:15)
DX: E11.52 Type 2 diabetes mellitus with diabetic peripheral angiopathy with gangrene (principal); M86.171 Other acute osteomyelitis, right ankle and foot; T82.49XA Other complication of vascular dialysis catheter, initial encounter; L97.419 Non-pressure chronic ulcer of right heel and midfoot with unspecified severity; L03.031 Cellulitis of right toe; A41.9 Sepsis, unspecified organism; J18.9 Pneumonia, unspecified organism; I70.261 Atherosclerosis of native arteries of extremities with gangrene, right leg; J44.0 Chronic obstructive pulmonary disease with (acute) lower respiratory infection; J98.11 Atelectasis; B49 Unspecified mycosis; E11.621 Type 2 diabetes mellitus with foot ulcer; E11.69 Type 2 diabetes mellitus with other specified complication; L97.519 Non-pressure chronic ulcer of other part of right foot with unspecified severity; I69.359 Hemiplegia and hemiparesis following cerebral infarction affecting unspecified side; E11.628 Type 2 diabetes mellitus with other skin complications; I11.0 Hypertensive heart disease with heart failure; I50.9 Heart failure, unspecified; E86.0 Dehydration; E78.00 Pure hypercholesterolemia, unspecified; Z79.4 Long term (current) use of insulin; Z87.891 Personal history of nicotine dependence; Z89.512 Acquired absence of left leg below knee